=== PATIENT | male | born 1945 | race Caucasian/White ===

== ENCOUNTER 2016-07-27 17:29 | Emergency (ER) | payer MEDICARE ==
[~2016-07-27] VITALS: Ht 172.7 cm; Wt 99.8 kg
--- NOTE | 2016-07-27 17:36 | NUR ---
PT BIB RA S/P GLF WHILE CLEANING POOL FILTER C/O MID-LOW BACK PAIN. NO HEAD OR NECK PAIN. NO KO. RESP EVEN UNLABORED. NAD NOTED. PLACED IN ER BED 16.
[2016-07-27] MEDS ORDERED: HYDROCODONE/APAP 10/325MG 1 EA TABLET PO ONE (18:30)
[2016-07-27] MEDS ORDERED: HYDROCODONE/APAP 10/325MG 1 EA TABLET ONE (18:30)
[2016-07-27] MEDS ORDERED: IBUPROFEN 600 MG TABLET PO ONE ×2 (18:30)
--- NOTE | 2016-07-27 18:37 | NUR ---
PT TAKEN TO XRAY VIA [facility]
--- NOTE | 2016-07-27 20:56 | NUR ---
NAD NOTED. Patient ready for discharge to home in stable condition. Written and verbal after care instructions given. Patient verbalizes understanding of instruction. PT AWAITING DISPENSING OF WALKER FOR DISCHARGE HOME; LITIGATION PARALEGAL PAGED TO GET ONE FROM [facility].
[2016-07-27 21:25] VITALS: BP 140/76
--- NOTE | 2016-07-27 21:25 | NUR ---
CALLED [facility] FOR PT. DISPENSED WALKER. PT AMBULATED TO [facility] WITH STEADY GAIT WITH WALKER.
== END 2016-07-27 21:26 | disposition home or self-care (01) ==
LOC: ER 17:31
DX: S93.402A Sprain of unspecified ligament of left ankle, initial encounter (principal); S29.012A Strain of muscle and tendon of back wall of thorax, initial encounter; J06.9 Acute upper respiratory infection, unspecified; E03.9 Hypothyroidism, unspecified; Z98.1 Arthrodesis status; Z85.51 Personal history of malignant neoplasm of bladder; Z88.2 Allergy status to sulfonamides; W18.39XA Other fall on same level, initial encounter; Y93.H3 Activity, building and construction; Y92.89 Other specified places as the place of occurrence of the external cause; Y99.9 Unspecified external cause status
CPT/HCPCS: 71010; 72074; 73610; 99284; A4606; Z7610

== ENCOUNTER 2018-05-18 13:25 | Inpatient (IN) | payer MEDICARE ==
[~2018-05-18] VITALS: Ht 172.7 cm; Wt 103.9 kg
[~2018-05-18 13:25] MED LIST: PIPERACILLIN /TAZOBACTAM 3.375 G in IV D5W 100 ML IV SCH
--- NOTE | 2018-05-18 13:47 | NUR ---
PT CAME FROM [facility] AND WAS ADVISED TO GO TO ER FOR RLQ ABDOMINAL PAIN X YESTERDAY. ALERT AND ORIENTED X 4, VERBALLY RESPONSIVE AND ABLE TO MAKE NEEDS KNWON. ON ROOM AIR, BREATHING EVENLY AND UNLABORED. CONNECTED TO THE MONITOR, AND PULSE OX, TACHYCARDIC 103, KEPT COMFORTABLE, WILL CONTINUE TO MONITOR ACCORDINGLY.
[2018-05-18 13:59] LABS: BASOPHILS # (AUTO) 0.3 /CMM (0.0-0.2); BASOPHILS % (AUTO) 0.9 % (0.0-2.0); EOSINOPHILS % (AUTO) 0.1 % (0.0-6.0); HEMATOCRIT 40 % (39-51); HEMOGLOBIN 12.7 g/dL (13.5-17.5); LYMPHOCYTES # (AUTO) 0.8 /CMM (0.8-4.8); MEAN CORPUSCULAR HGB CONC 32 g/dl (31.0-36.0); MEAN CORPUSCULAR VOLUME 87 fL (80-96); MONOCYTES # (AUTO) 2.2 /CMM (0.1-1.30); MONOCYTES % (AUTO) 5.7 % (2.0-12.0); NEUTROPHILS # (AUTO) 35.6 /CMM (1.8-8.9); NEUTROPHILS % (AUTO) 91.3 % (43.0-81.0); PLATELET COUNT (AUTO) 203 /CMM (150-450); RED BLOOD CELL COUNT(AUTO) 4.56 MIL/uL (4.5-6.0)
[2018-05-18] MEDS ORDERED: IV NS 0.9% 1,000 ML BAG IV ONE ×2 (14:00→15:00)
[2018-05-18 14:02] LABS: WHITE BLOOD COUNT (AUTO) 38.9 K/uL (4.3-11.0)
[2018-05-18 14:07] LABS: CALCIUM, SERUM 8.5 mg/dL (8.5-10.1); CARBON DIOXIDE 16 mmol/L (21-32); CHLORIDE 109 mmol/L (98-107); CREATININE 3.8 mg/dL (0.6-1.3); GLUCOSE 120 mg/dL (74-106); POTASSIUM 4.6 mmol/L (3.5-5.1); SODIUM SERUM 136 mmol/L (136-145); UREA NITROGEN, BLOOD 67 mg/dL (7-18)
[2018-05-18 14:13] LABS: ALANINE AMINOTRANSFERASE 42 U/L (12-78); ALBUMIN 2.7 g/dL (3.4-5.0); ALKALINE PHOSPHATASE 83 U/L (46-116); ASPARTATE AMINOTRANSFERASE 25 U/L (15-37); BILIRUBIN,DIRECT 0.4 mg/dL (0.0-0.2); BILIRUBIN,TOTAL 1.1 mg/dL (0.2-1.0); LIPASE 647 U/L (73-393); TOTAL PROTEIN, SERUM 7.3 g/dL (6.4-8.2)
[2018-05-18 15:00] LABS: BAND % (MANUAL) 6 % (0.0-5.0); LYMPHOCYTES % (MANUAL) 6 % (16-48); MONOCYTES % (MANUAL) 8 % (0-11.0); NEUTROPHILS % (MANUAL) 80 (42-76)
[2018-05-18] MEDS ORDERED: VANCOMYCIN 1 GM in IV D5W 250 ML IV ONE (15:00)
[2018-05-18] MEDS ORDERED: PIPERACILLIN /TAZOBACTAM 3.375 G in IV D5W 50 ML IV ONE (15:00)
[2018-05-18 15:14] LABS: APPEARANCE,URINE Turbid (CLEAR); BILIRUBIN,URINE SMALL (NEGATIVE); BLOOD, URINE Large Ery/uL (NEGATIVE); KETONES,URINE Negative (NEGATIVE); LEUKOCYTE ESTERASE ,URINE Small (NEGATIVE); NITRITE, URINE Negative (NEGATIVE); PROTEIN,URINE >=300 mg/dl (NEGATIVE); UGLUCOSE Negative (NEGATIVE); UROBILINOGEN,URINE 0.2 EU/dL (0.2)
[2018-05-18 15:15] LABS: COLOR,URINE Dark Yellow (YELLOW)
--- NOTE | 2018-05-18 15:20 | NUR ---
PT GOING TO RADIOLOGY FOR CT SCAN.
[2018-05-18 15:21] LABS: BACTERIA,URINE Moderate /HPF (None Seen); SQUAMOUS EPITHELIAL CELL,UR Few /HPF (None Seen); WBC,URINE 80-100 /HPF (0-3)
--- NOTE | 2018-05-18 15:30 | NUR ---
pt came back from ct
[2018-05-18] MEDS ORDERED: INDO50CA14 PO (16:12)
[2018-05-18] MEDS ORDERED: LEVO125T8 PO (16:12)
[2018-05-18] MEDS ORDERED: LATA7.5D EACHEYE (16:12)
[2018-05-18] MEDS ORDERED: HYDR50TA3 PO (16:12)
[2018-05-18] MEDS ORDERED: LISI40TA4 PO (16:12)
--- NOTE | 2018-05-18 17:50 | NUR ---
Pt is assigned to [facility] rm# [id number], DX: severe sepsis, and accepting: Yuniel Durham DNP
--- NOTE | 2018-05-18 18:17 | NUR ---
CALLED TAMARA AND PRATIK TO chris and report given for efrain.
--- NOTE | 2018-05-18 19:17 | NUR ---
TRANSFERRED PT VIA GURNEY ACCOMPANIED BY RN AND EMT VIA ACLS PROTOCOL IN NO APPARENT DISTRESS NOTED. [place] ON SITE AND RECEIVED THE PATEINT FOR FORTUNATO.
[2018-05-18] MEDS ORDERED: HYDROCODONE/APAP 5/325MG 1 EACH TABLET PO PRN (19:30)
[2018-05-18] MEDS ORDERED: Z GUARD REMEDY 2 OZ OINT TP PRN (19:30)
[2018-05-18] MEDS ORDERED: ONDANSETRON HCL/PF 4 MG/2 ML VIAL IVP PRN (19:30)
[2018-05-18] MEDS ORDERED: ZOLPIDEM TARTRATE 5 MG TABLET PO PRN (19:30)
[2018-05-18] MEDS ORDERED: HYDROMORPHONE INJ 2 MG/ML DISP.SYRIN IV PRN (19:30)
[2018-05-18] MEDS ORDERED: ACETAMINOPHEN 325 MG TABLET PO PRN (19:30)
[2018-05-18] MEDS ORDERED: FEE PK DOSING 1 MIN EA MC ONE (19:31)
[2018-05-18 20:00] VITALS: BP 107/41
[2018-05-18] MEDS ORDERED: CEFTRIAXONE 1 G VIAL ONE (21:20)
[2018-05-18] MEDS: CEFTRIAXONE 1 G in IV D5W 50 ML IV SCH (21:40)
[2018-05-18] MEDS: TAMSULOSIN 0.4 MG CAP.SR.24H PO SCH ×2 (21:40→21:48)
[2018-05-19] VITALS (7 sets, daily range): BP systolic 100–154; BP diastolic 55–116
[2018-05-19] MEDS: IV NS 0.9% 1,000 ML IV PRN ×2 (01:19→15:36)
[2018-05-19] MEDS ORDERED: PIPERACILLIN /TAZOBACTAM 3.375 G in IV D5W 100 ML IV SCH ×4 (04:00)
[2018-05-19 06:18] LABS: BASOPHILS % (AUTO) 0.1 % (0.0-2.0); EOSINOPHILS % (AUTO) 0.1 % (0.0-6.0); HEMATOCRIT 38 % (39-51); HEMOGLOBIN 12.1 g/dL (13.5-17.5); LYMPHOCYTES # (AUTO) 0.7 /CMM (0.8-4.8); LYMPHOCYTES % (AUTO) 2.1 % (20.0-44.0); MEAN CORPUSCULAR HGB CONC 32 g/dl (31.0-36.0); MEAN CORPUSCULAR VOLUME 87 fL (80-96); MONOCYTES # (AUTO) 1.9 /CMM (0.1-1.30); MONOCYTES % (AUTO) 6.2 % (2.0-12.0); NEUTROPHILS # (AUTO) 28.6 /CMM (1.8-8.9); NEUTROPHILS % (AUTO) 91.5 % (43.0-81.0); PLATELET COUNT (AUTO) 175 /CMM (150-450); RED BLOOD CELL COUNT(AUTO) 4.34 MIL/uL (4.5-6.0)
[2018-05-19 06:36] LABS: WHITE BLOOD COUNT (AUTO) 31.3 K/uL (4.3-11.0)
[2018-05-19 06:38] LABS: CALCIUM, SERUM 7.6 mg/dL (8.5-10.1); CARBON DIOXIDE 13 mmol/L (21-32); CHLORIDE 112 mmol/L (98-107); CHOLESTEROL 82 mg/dL (<200); CREATININE 3.6 mg/dL (0.6-1.3); GLUCOSE 91 mg/dL (74-106); HDL CHOLESTEROL 18 mg/dL (40-60); LDL 45 mg/dL (0-99); POTASSIUM 5.2 mmol/L (3.5-5.1); SODIUM SERUM 141 mmol/L (136-145); TRIGLYCERIDES 93 mg/dL (30-150); UREA NITROGEN, BLOOD 63 mg/dL (7-18)
[2018-05-19 06:40] LABS: MAGNESIUM 1.1 mg/dL (1.8-2.4)
[2018-05-19 06:41] LABS: THYROID STIMULATING HORMONE < 0.007 uIU/mL (0.358-3.74)
[2018-05-19 07:23] LABS: BAND % (MANUAL) 14 % (0.0-5.0); LYMPHOCYTES % (MANUAL) 1 % (16-48); MONOCYTES % (MANUAL) 2 % (0-11.0); NEUTROPHILS % (MANUAL) 83 (42-76)
--- NOTE | 2018-05-19 07:56 | NUR ---
TAMARA RN NOTE RECEIVED PATIENT IN BED,ALL NEEDS ATTENDED, ON TELE MONITOR ST 123 , ALERT ORIENTED X3, RT FA AND RT AC HL INTACT , ON IVF ORDERED , BED IN LOWEST AND LOCKED POSITION , PLAN OF CARE DISCUSSED WITH PATIENT ,NO C\O PAIN OR DISCOMFORT BUT NOTED SLIGHT SOB , PLACED ON 2L NC FOR NOW, WILL MONITOR CLOSELY,BED IN LOWEST AND LOCKED POSITION , CALL LIGHT WITHIN REACH, MAG 1.[address] ROWE SUPERVISOR CD AREA, STATED THAT WILL CHECK PATIENT SOON
[2018-05-19] MEDS: PANTOPRAZOLE 40 MG VIAL IV SCH (08:11)
[2018-05-19] MEDS: LEVOTHYROXINE SODIUM 125 MCG TABLET PO SCH (08:11)
--- NOTE | 2018-05-19 09:30 | NUR ---
TAMARA RN NOTE SPOKE WITH PAMELA NOTIFIED THAT MAG 1.1 AND K 5.2 BP 141/116 STATED I WILL SEE PATIENT SOON, NO NEW ORDER GIVEN AT THIS TIME 2
--- NOTE | 2018-05-19 11:59 | NUR ---
TAMARA RN NOTE DR GORDON AT BEDSIDE AWARE THAR HR 123-148 BP 141/116 ALSO AWARE THAT MAG1.1 STATED WILL ORDER MAG TO INFUSE
[2018-05-19] MEDS: Magnesium 1GM/D5W 100ML PREMIX 100 ML IV SCH ×4 (12:07→15:28)
[2018-05-19 12:29] LABS: APPEARANCE,URINE CLEAR (CLEAR); BILIRUBIN,URINE NEGATIVE (NEGATIVE); BLOOD, URINE 3+ Ery/uL (NEGATIVE); COLOR,URINE YELLOW (YELLOW); KETONES,URINE NEGATIVE (NEGATIVE); LEUKOCYTE ESTERASE ,URINE 1+ (NEGATIVE); NITRITE, URINE NEGATIVE (NEGATIVE); PROTEIN,URINE 2+ mg/dl (NEGATIVE); UGLUCOSE NEGATIVE (NEGATIVE); UROBILINOGEN,URINE 0.2 EU/dL (0.2)
--- NOTE | 2018-05-19 12:30 | NUR ---
TAMARA RN NOTE SPOKE WITH LUZ ELENA INFECTION CONTROL NURSE NOTIFIED THAT PATIENT HAS LOOSE STOOLL STATED OK TO COLLECT STOOL FOR R\O C DIF ,NO NEED TO FILL OUT FORM PER POLICY PROTOCOL
[2018-05-19 12:34] LABS: CREATININE, URINE 66.3 MG/DL (30.0-125.0); URINE TOTAL PROTEIN 164.4 mg/dL (0-11.9)
[2018-05-19 12:36] LABS: BACTERIA,URINE Few /HPF (None Seen); SQUAMOUS EPITHELIAL CELL,UR Few /HPF (None Seen)
[2018-05-19 12:37] LABS: WBC,URINE 21-50 /HPF (0-3)
--- NOTE | 2018-05-19 12:46 | NUR ---
eris rn note ua collected as ordered ,keep clean dry will f\u
[2018-05-19 13:01] LABS: EOSINOPHIL,URINE None Seen
--- NOTE | 2018-05-19 14:34 | NUR ---
eris rn note spoke to MD Braun urologist regarding consent for Cystoscopy w/ stent insertion. stated he would see patient by end of day today and will order necessary interventions once he completed discussion w/ patient. Patient informed bedside by RN of the conversation.
--- NOTE | 2018-05-19 16:00 | NUR ---
TAMARA RN NOT UNABLE TO COLLECT STOOL, ITS ABSORBED ON LINEN
--- NOTE | 2018-05-19 16:32 | NUR ---
Met with patient, he is alert and oriented. States he lives alone locally in a single level home. He has a walker if needed . States he is ambulatory and independent with adl's and still driving. His car is parked at the handicapped parking spot at the parking structure. He plan to return home with his car once discharge . Addendum: 05/19/18 at 1632 by MICHAEL AQUINO RN Amended: Links added.
[2018-05-19] MEDS: LATANOPROST EYE DROP 0.005% 2.5 ML BOTTLE EACHEYE SCH (17:51)
--- NOTE | 2018-05-19 17:57 | NUR ---
TAMARA RN NOTES SPOKE W/ PT AND DISCUSSED PROCEDURE ORDERED. PT CONTINUES TO REFUSE TO CONSENT TO TX UNTIL HE SPEAKS TO MD. PT EDUCATED AND ENCOURAGED BUT HE STILL WANTS TO WAIT FOR MD.
--- NOTE | 2018-05-19 19:15 | NUR ---
TAMARA RN NOTE ENDORSED TO NEXT SHIFT RN TO COLLECT STOOL IF STOOL PRESENTS WATERY
--- NOTE | 2018-05-19 20:00 | NUR ---
RN TAMARA INITIAL NOTE RECEIVED PATIENT IN BED,ALL NEEDS ATTENDED, ON TELE MONITOR ST 125, ALERT ORIENTED X3, RT FA AND RT AC HL INTACT , ON IVF ORDERED , BED IN LOWEST AND LOCKED POSITION , PLAN OF CARE DISCUSSED WITH PATIENT ,NO C\O PAIN OR DISCOMFORT BUT NOTED SLIGHT SOB , PLACED ON 2L NC FOR NOW, WILL MONITOR CLOSELY,BED IN LOWEST AND LOCKED POSITION , CALL LIGHT WITHIN REACH, SEEN BY DR ROWE ENERGY SALES CONSULTANT, FO IN AM, CONSENT OBTAINED BY MD AT BED SIDE.
[2018-05-19] MEDS: CEFTRIAXONE 1 G in IV D5W 50 ML IV SCH (22:27)
[2018-05-19] MEDS: TAMSULOSIN 0.4 MG CAP.SR.24H PO SCH (22:27)
[2018-05-20] VITALS (7 sets, daily range): BP systolic 97–139; BP diastolic 55–71
[2018-05-20] MEDS: IV NS 0.9% 1,000 ML IV PRN ×3 (01:46→23:42)
[2018-05-20] MEDS ORDERED: VANCOMYCIN 1 GM in IV D5W 250 ML IV SCH (03:00)
--- NOTE | 2018-05-20 06:45 | NUR ---
RN CLOSING TAMARA NOTE PT SCHEDULED FOR AM SX FOR CYSTOSCOPY RT JJ STENT PLACEMENT AND FLUOROSCOPY, CONSENT AND CHECK LIST COMPLETED, FILED IN PT CHART. WILL ENDORSE TO AM RN TO F/U WITH PROCEDURE.
[2018-05-20] MEDS ORDERED: IOHEXOL 240MG/ML 0 ML IV ONE (07:04)
[2018-05-20] MEDS ORDERED: LIDOCAINE 2% JEL 5 ML TUBE ONE (07:05)
--- NOTE | 2018-05-20 07:10 | NUR ---
TAMARA RN OPENING NOTES RECEIVED REPORT FROM THE SHEEP FARM WORKER RN.PT WENT TO SURGERY AT THIS TIME.
[2018-05-20 07:21] LABS: BASOPHILS % (AUTO) 0.2 % (0.0-2.0); EOSINOPHILS % (AUTO) 0.2 % (0.0-6.0); HEMATOCRIT 33 % (39-51); HEMOGLOBIN 10.9 g/dL (13.5-17.5); LYMPHOCYTES # (AUTO) 0.5 /CMM (0.8-4.8); MEAN CORPUSCULAR HGB CONC 33 g/dl (31.0-36.0); MEAN CORPUSCULAR VOLUME 86 fL (80-96); MONOCYTES # (AUTO) 0.9 /CMM (0.1-1.30); NEUTROPHILS # (AUTO) 16.7 /CMM (1.8-8.9); NEUTROPHILS % (AUTO) 91.6 % (43.0-81.0); PLATELET COUNT (AUTO) 134 /CMM (150-450); RED BLOOD CELL COUNT(AUTO) 3.87 MIL/uL (4.5-6.0); WHITE BLOOD COUNT (AUTO) 18.3 K/uL (4.3-11.0)
[2018-05-20] MEDS ORDERED: ANESTHESIA TRAY IN PYXIS 1 EA TRAY MC ONE (07:23)
[2018-05-20 07:34] LABS: CREATINE KINASE, TOTAL 25 U/L (39-308)
[2018-05-20 07:43] LABS: ALANINE AMINOTRANSFERASE 25 U/L (12-78); ALBUMIN 1.9 g/dL (3.4-5.0); ALKALINE PHOSPHATASE 156 U/L (46-116); ASPARTATE AMINOTRANSFERASE 17 U/L (15-37); BILIRUBIN,TOTAL 0.5 mg/dL (0.2-1.0); CALCIUM, SERUM 8.2 mg/dL (8.5-10.1); CARBON DIOXIDE 13 mmol/L (21-32); CHLORIDE 113 mmol/L (98-107); CREATININE 3.4 mg/dL (0.6-1.3); GLUCOSE 87 mg/dL (74-106); MAGNESIUM 2.1 mg/dL (1.8-2.4); PHOSPHORUS 3.7 mg/dL (2.5-4.9); POTASSIUM 4.4 mmol/L (3.5-5.1); SODIUM SERUM 140 mmol/L (136-145); TOTAL PROTEIN, SERUM 6.1 g/dL (6.4-8.2); UREA NITROGEN, BLOOD 57 mg/dL (7-18)
--- NOTE | 2018-05-20 09:05 | NUR ---
TAMARA RN NOTES PT CAME BACK FROM SURGERY,RECEIVED FROM THE SURGICAL STAFF.ALERT/ORIENTED X4.ON TELE HR IS [address]ON NC 2L O2 CONTINUOUSLY.NO SOB AND ACUTE DISTRESS NOTED. DENIES PAIN,NAUSEA AND VOMITING,BLEEDING. IV LINE IS ON RIGHT FA G18,RIGHT AC G20,LEFT HAND G18,SITE IS CLEAN,DRY AND INTACT.NO INFILTRATION NOTED.SAFETY IS MAINTAINED AT ALL TIMES.BED IS IN LOW POSITION AND LOCKED.CALL LIGHT IS WITHIN REACH.WILL CONTINUE TO MONITOR THE PT CLOSELY.
[2018-05-20] MEDS: PANTOPRAZOLE 40 MG VIAL IV SCH (09:34)
[2018-05-20] MEDS: LEVOTHYROXINE SODIUM 125 MCG TABLET PO SCH (09:34)
[2018-05-20] MEDS ORDERED: MEROPENEM 500 MG in IV NS 0.9% 50 ML IV SCH (13:00)
[2018-05-20] MEDS: MEROPENEM 1 G in IV NS 0.9% 100 ML IV SCH (13:15)
[2018-05-20] MEDS: LATANOPROST EYE DROP 0.005% 2.5 ML BOTTLE EACHEYE SCH (18:31)
--- NOTE | 2018-05-20 19:30 | NUR ---
TAMARA RN CLOSING NOTES PT IS LYING ON BED WITH 2L NC O2 CONTINUOUSLY.ALERT/ORIENTED X4.S/P STENT PLACEMENT .NO HEMATURIA NOTED.RESPIRATION IS EVEN AND NONLABORED.ENDORSED TO SALES MERCHANDISING SPECIALIST RN FOR FORTUNATO.
--- NOTE | 2018-05-20 20:00 | NUR ---
RN TAMARA INITIAL NOTE RECEIVED PATIENT IN BED,ALL NEEDS ATTENDED, ON TELE MONITOR ST 105, ALERT ORIENTED X3, RT FA AND RT AC HL INTACT , ON IVF ORDERED , BED IN LOWEST AND LOCKED POSITION , PLAN OF CARE DISCUSSED WITH PATIENT ,NO C\O PAIN OR DISCOMFORT BUT NOTED SLIGHT SOB , PLACED ON 2L NC FOR NOW, WILL MONITOR CLOSELY,BED IN LOWEST AND LOCKED POSITION , CALL LIGHT WITHIN REACH, S/P SX, NO COMPLICATION NOTED.
[2018-05-20] MEDS: TAMSULOSIN 0.4 MG CAP.SR.24H PO SCH (21:39)
[2018-05-21 00:06] VITALS: BP 128/68
[2018-05-21] MEDS: MEROPENEM 1 G in IV NS 0.9% 100 ML IV SCH ×2 (01:13→12:05)
[2018-05-21 04:35] VITALS: BP 143/68
--- NOTE | 2018-05-21 06:16 | NUR ---
RN TAMARA CLOSING NOTE ENDORSED PATIENT IN BED,ALL NEEDS ATTENDED, ON TELE MONITOR ST 105, ALERT ORIENTED X3, RT FA AND RT AC HL INTACT , ON IVF ORDERED , BED IN LOWEST AND LOCKED POSITION , PLAN OF CARE DISCUSSED WITH PATIENT ,NO C\O PAIN OR DISCOMFORT BUT NOTED SLIGHT SOB , PLACED ON 2L NC FOR NOW, WILL MONITOR CLOSELY,BED IN LOWEST AND LOCKED POSITION , CALL LIGHT WITHIN REACH, S/P SX, NO COMPLICATION NOTED.
[2018-05-21 07:24] LABS: BASOPHILS % (AUTO) 0.1 % (0.0-2.0); EOSINOPHILS % (AUTO) 0.7 % (0.0-6.0); HEMATOCRIT 32 % (39-51); HEMOGLOBIN 10.4 g/dL (13.5-17.5); LYMPHOCYTES # (AUTO) 0.7 /CMM (0.8-4.8); LYMPHOCYTES % (AUTO) 4.4 % (20.0-44.0); MEAN CORPUSCULAR HGB CONC 33 g/dl (31.0-36.0); MEAN CORPUSCULAR VOLUME 86 fL (80-96); MONOCYTES % (AUTO) 6.5 % (2.0-12.0); NEUTROPHILS % (AUTO) 88.3 % (43.0-81.0); PLATELET COUNT (AUTO) 121 /CMM (150-450); RED BLOOD CELL COUNT(AUTO) 3.71 MIL/uL (4.5-6.0); WHITE BLOOD COUNT (AUTO) 15.8 K/uL (4.3-11.0)
--- NOTE | 2018-05-21 07:31 | NUR ---
TAMARA RN INITIAL NOTES: RECEIVED PT FROM NIGHTSHIFT RN IN STABLE CONDITION. PT IS A/O X4. NO SOB OR ACUTE SIGNS OF DISTRESS NOTED. BREATHING IS EVEN AND UNLABORED. PT ON 2L VIA NC AND SATING WELL. HE DENIES ANY PAIN AT THIS TIME. NO DIFFICULTIES WITH URINATION REPORTED BY NIGHTSHIFT RN OF PT. VSS. MULTIPLE IVS NOTED. ONE TO PT'S LEFT HAND ANOTHER TO HIS RIGHT AC AND RIGHT FA INFUSING NS @ 125ML/HR. ALL IVS NOTED TO BE PATENT AND INTACT. NO REDRESSOR SIGNS OF INFILTRATION NOTED. PT TOLERATING NS INFUSION WELL. HE IS CURRENTLY SR ON THE TELE MONITOR WITH A HR OF 98. BED IN LOW LOCKED POSITION, SIDE RAILS UP X2, CALL LIGHT WITHIN REACH. WILL CONTINUE TO MONITOR
[2018-05-21 07:43] LABS: CALCIUM, SERUM 8.4 mg/dL (8.5-10.1); CARBON DIOXIDE 14 mmol/L (21-32); CHLORIDE 115 mmol/L (98-107); GLUCOSE 93 mg/dL (74-106); POTASSIUM 4.5 mmol/L (3.5-5.1); SODIUM SERUM 144 mmol/L (136-145); UREA NITROGEN, BLOOD 55 mg/dL (7-18)
[2018-05-21 08:00] VITALS: BP 139/72
--- NOTE | 2018-05-21 08:27 | NUR ---
TAMARA RN NOTES: DR. INGRAM UPDATE DR. INGRAM CALLED IN REGARDS TO PT'S CONDITION. UPDATED ON CONDITION AND CURRENT VITALS. PER ME "PT IS CLEARED TO GO HOME FROM MY STANDPOINT WITH HIS STENT AND KNOWS TO FOLLOW UP WITH HIS UROLOGIST"
[2018-05-21] MEDS: PANTOPRAZOLE 40 MG VIAL IV SCH (08:32)
[2018-05-21] MEDS: LEVOTHYROXINE SODIUM 125 MCG TABLET PO SCH (08:32)
[2018-05-21] MEDS: IV NS 0.9% 1,000 ML IV PRN (10:46)
[2018-05-21] MEDS ORDERED: MERO1VIA3 IV (11:16)
[2018-05-21 12:00] VITALS: BP 127/59
[2018-05-21 14:15] LABS: PTH, INTACT 84 pg/mL (15-65)
[2018-05-21 16:00] VITALS: BP 134/67
--- NOTE | 2018-05-21 16:54 | NUR ---
TAMARA MACHINE SETTER AUTOMATIC NOTES PT WAS DISCHARGED FROM FACILITY IN STABLE CONDITION. ALL NEEDS WERE MET DURING SHIFT AND ORDERS CARRIED OUT ACCORDINGLY. ALL DUE MEDS GIVEN. PRN CARE RENDERED. PT DENIED ANY PAIN PRIOR TO D/C. VSS. EXITCARE MATERIALS REVIEWED WITH PT. PT SIGNED ALL D/C PAPERWORK. ALL BELONGINGS ACCOUNTED FOR PRIOR TO D/C. COPIES MADE AND PLACED IN PT'S CHART. REPORT CALLED AND GIVEN TO PILO THE CHARGE NURSE AT [facility]. CHARGE MADE AWARE OF PT'S ISOLATION AND THAT PT IS TO CONTINUE ABX FOR THE NEXT 10 DAYS ORDERED. CHARGE ALSO NOTIFIED OF PT'S IV (S) AND ASKED THAT THEY ALL BE LEFT IN. ALL IVS WERE PATENT AND INTACT UPON TRANSFER. NO REDNESS OR SIGNS OF INFILTRATION NOTED TO EACH. HE WAS SAFELY TRANSFERRED FROM [facility] TO [facility] AND LEFT VIA AMBULANCE TRANSPORT
[2018-05-25 08:08] LABS: *SPE A/G RATIO 0.6 (0.7-1.7); *SPE ALPHA-1-GLOBULIN 0.5 g/dL (0.0-0.4); *SPE BETA GLOBULIN 0.9 g/dL (0.7-1.3); *SPE GLOBULIN, TOTAL 3.3 g/dL (2.2-3.9); *SPE M-SPIKE Not Observed g/dL (Not Observed)
[2018-06-21] MEDS ORDERED: HYDR-3972 PO (14:20)
[2018-06-21] MEDS ORDERED: LEVO500T90 PO (14:20)
[2018-06-21] MEDS ORDERED: PRED20TA PO ×2 (14:20→15:13)
[2018-06-21] MEDS ORDERED: METR500T PO (14:20)
[2018-06-21] MEDS ORDERED: NYST15CR2 TP (14:20)
== END 2018-05-21 16:27 | DRG 853 ==
LOC: ER 13:27 → TELE1 18:03 → TELE-TD 21:56
PROVIDERS: ADMIT Nurse Practitioner Acute Care; ATTEND Family Medicine
PROC: 0T768DZ Dilation of Right Ureter with Intraluminal Device, Via Natural or Artificial Opening Endoscopic (ICD-10-PCS; principal; 2018-05-20)
DX: A41.9 Sepsis, unspecified organism (principal); N17.0 Acute kidney failure with tubular necrosis; N13.6 Pyonephrosis; R65.20 Severe sepsis without septic shock; E03.9 Hypothyroidism, unspecified; E87.5 Hyperkalemia; I10 Essential (primary) hypertension; K43.9 Ventral hernia without obstruction or gangrene; K76.0 Fatty (change of) liver, not elsewhere classified; Z88.2 Allergy status to sulfonamides; Z90.49 Acquired absence of other specified parts of digestive tract; E66.9 Obesity, unspecified; Z68.34 Body mass index [BMI] 34.0-34.9, adult; M10.9 Gout, unspecified; B96.20 Unspecified Escherichia coli [E. coli] as the cause of diseases classified elsewhere; Z16.12 Extended spectrum beta lactamase (ESBL) resistance; Z85.51 Personal history of malignant neoplasm of bladder; Z87.442 Personal history of urinary calculi; N28.1 Cyst of kidney, acquired; T39.395A Adverse effect of other nonsteroidal anti-inflammatory drugs [NSAID], initial encounter; T46.4X5A Adverse effect of angiotensin-converting-enzyme inhibitors, initial encounter; T50.2X5A Adverse effect of carbonic-anhydrase inhibitors, benzothiadiazides and other diuretics, initial encounter; Y92.009 Unspecified place in unspecified non-institutional (private) residence as the place of occurrence of the external cause
CPT/HCPCS: 36415; 71045-TC; 74018; 80048-TC; 80053-TC; 80061-TC; 80076-TC; 80202-TC; 81000-TC; 82550-TC; 82570-TC; 83605-TC; 83690-TC; 83735-TC; 83970; 84100-TC; 84155; 84155-TC; 84165; 84300-TC; 84443-TC; 84484-TC; 85025-TC; 87040-TC; 87081-TC; 87086-TC; 87186-TC; A4216; A4217; C1769; C2617; C9113; G0378; J0696; J2185; J2543; J2704; J3370; J3475; J7030; J7060; Q9966

== ENCOUNTER 2018-05-29 12:55 | Emergency (ER) | payer MEDICARE ==
[~2018-05-29] VITALS: Ht 182.9 cm; Wt 98.0 kg
[~2018-05-29 12:55] MED LIST changes: +HYDR50TA3 PO; +LATA7.5D EACHEYE; +LEVO125T8 PO; +LISI40TA4 PO; +MERO1VIA3 IV; -PIPERACILLIN /TAZOBACTAM 3.375 G in IV D5W 100 ML IV SCH
[2018-05-29] MEDS ORDERED: MERO500V3 IV (13:15)
[2018-05-29] MEDS ORDERED: TIMO5DRO39 EACHEYE (13:15)
[2018-05-29] MEDS ORDERED: MULT-447 PO (13:15)
[2018-05-29] MEDS ORDERED: TEMA7.5C PO (13:15)
--- NOTE | 2018-05-29 13:15 | NUR ---
BIB PRIVATE AMB FROM [facility]. SENT BY PMD FOR ABLABS K+ 6.1, BUN 77, CREA 2.5. ALERT AND ORIENTED X 4, VERBALLY RESPONSIVE. ON ROOM AIR, BREATHING EVENLY AND UNLABORED. DENIES ANY PAIN AT THIS TIME. CONNECTED TO THE MONITOR AND PULSE OX. KEPT COMFORTABLE, WILL CONTINUE TO MONITOR ACCORDINGLY.
[2018-05-29 13:23] LABS: BASOPHILS # (AUTO) 0.1 /CMM (0.0-0.2); BASOPHILS % (AUTO) 0.5 % (0.0-2.0); EOSINOPHILS % (AUTO) 3.3 % (0.0-6.0); HEMATOCRIT 39 % (39-51); HEMOGLOBIN 12.6 g/dL (13.5-17.5); LYMPHOCYTES # (AUTO) 1.4 /CMM (0.8-4.8); LYMPHOCYTES % (AUTO) 10.5 % (20.0-44.0); MEAN CORPUSCULAR HGB CONC 33 g/dl (31.0-36.0); MEAN CORPUSCULAR VOLUME 87 fL (80-96); MONOCYTES # (AUTO) 1.2 /CMM (0.1-1.30); MONOCYTES % (AUTO) 9.3 % (2.0-12.0); NEUTROPHILS # (AUTO) 10.2 /CMM (1.8-8.9); NEUTROPHILS % (AUTO) 76.4 % (43.0-81.0); PLATELET COUNT (AUTO) 273 /CMM (150-450); RED BLOOD CELL COUNT(AUTO) 4.45 MIL/uL (4.5-6.0); WHITE BLOOD COUNT (AUTO) 13.3 K/uL (4.3-11.0)
[2018-05-29] MEDS ORDERED: IV NS 0.9% 1,000 ML BAG IV ONE (13:30)
[2018-05-29 13:33] LABS: CALCIUM, SERUM 8.7 mg/dL (8.5-10.1); CARBON DIOXIDE 18 mmol/L (21-32); CHLORIDE 112 mmol/L (98-107); CREATININE 2.6 mg/dL (0.6-1.3); GLUCOSE 118 mg/dL (74-106); POTASSIUM 5.2 mmol/L (3.5-5.1); SODIUM SERUM 141 mmol/L (136-145); UREA NITROGEN, BLOOD 78 mg/dL (7-18)
[2018-05-29 13:39] LABS: ALANINE AMINOTRANSFERASE 40 U/L (12-78); ALBUMIN 2.3 g/dL (3.4-5.0); ALKALINE PHOSPHATASE 139 U/L (46-116); ASPARTATE AMINOTRANSFERASE 35 U/L (15-37); BILIRUBIN,DIRECT 0.1 mg/dL (0.0-0.2); BILIRUBIN,TOTAL 0.4 mg/dL (0.2-1.0); TOTAL PROTEIN, SERUM 7.8 g/dL (6.4-8.2)
--- NOTE | 2018-05-29 13:56 | NUR ---
CALLED [facility] FOR BLS TRANSPORT. ETA 30-45 MINUTES. TRIP#[id number]
[2018-05-29 13:58] LABS: APPEARANCE,URINE SL CLOUDY (CLEAR); BILIRUBIN,URINE NEGATIVE (NEGATIVE); BLOOD, URINE 3+ Ery/uL (NEGATIVE); COLOR,URINE DARK YELLO (YELLOW); KETONES,URINE NEGATIVE (NEGATIVE); LEUKOCYTE ESTERASE ,URINE TRACE (NEGATIVE); NITRITE, URINE NEGATIVE (NEGATIVE); PROTEIN,URINE 2+ mg/dl (NEGATIVE); UGLUCOSE NEGATIVE (NEGATIVE); UROBILINOGEN,URINE 0.2 EU/dL (0.2)
[2018-05-29 14:17] LABS: BACTERIA,URINE 1+ /HPF (None Seen); RBC,URINE TOO NUMEROUS TO COUN /HPF (0-2); SQUAMOUS EPITHELIAL CELL,UR 0-2 /HPF (None Seen)
--- NOTE | 2018-05-29 14:32 | NUR ---
CALLED [facility] SPOKE TO ELISABETH ROBLERO AND REPORT GIVEN FOR FORTUNATO.
[2018-05-29 15:43] VITALS: BP 121/71
--- NOTE | 2018-05-29 15:44 | NUR ---
Patient discharged to [facility] in stable condition. Written and verbal after care instructions given. Patient verbalizes understanding of instruction. IV removed. Catheter intact and site benign. Pressure and 4x4 applied to site. No bleeding noted.
[2018-06-21] MEDS ORDERED: PRED20TA PO ×2 (14:20→15:13)
[2018-06-21] MEDS ORDERED: HYDR-3972 PO (14:20)
[2018-06-21] MEDS ORDERED: LEVO500T90 PO (14:20)
[2018-06-21] MEDS ORDERED: METR500T PO (14:20)
[2018-06-21] MEDS ORDERED: NYST15CR2 TP (14:20)
== END 2018-05-29 15:44 ==
LOC: ER 12:59
DX: N28.9 Disorder of kidney and ureter, unspecified (principal); E03.8 Other specified hypothyroidism; Z85.51 Personal history of malignant neoplasm of bladder; Z90.49 Acquired absence of other specified parts of digestive tract; Z98.890 Other specified postprocedural states; Z88.2 Allergy status to sulfonamides; Z60.2 Problems related to living alone
CPT/HCPCS: 36415; 80048-TC; 80076-TC; 81000-TC; 85025-TC; A4649; J7030

== ENCOUNTER 2018-06-13 21:24 | Inpatient (IN) | payer MEDICARE ==
[~2018-06-13] VITALS: Ht 172.7 cm; Wt 95.3 kg
[~2018-06-13 21:24] MED LIST changes: -LATA7.5D EACHEYE; -MERO1VIA3 IV; +MERO500V3 IV; +MULT-447 PO; +TEMA7.5C PO; +TIMO5DRO39 EACHEYE
--- NOTE | 2018-06-13 22:05 | NUR ---
BIBPA FROM SNF FOR ABNORMAL LABS; NOTED PT TO BE HYPOTENSIVE; PT AAOX4, PT ON MONITOR, VSS, NAD NOTED, PENDING ER PROVIDER EVAL
[2018-06-13] MEDS ORDERED: IV NS 0.9% 1,000 ML BAG IV ONE (22:30)
[2018-06-13 22:33] LABS: BASOPHILS # (AUTO) 0.1 /CMM (0.0-0.2); BASOPHILS % (AUTO) 0.5 % (0.0-2.0); HEMATOCRIT 37 % (39-51); HEMOGLOBIN 11.8 g/dL (13.5-17.5); LYMPHOCYTES # (AUTO) 1.8 /CMM (0.8-4.8); LYMPHOCYTES % (AUTO) 11.7 % (20.0-44.0); MEAN CORPUSCULAR HGB CONC 32 g/dl (31.0-36.0); MEAN CORPUSCULAR VOLUME 86 fL (80-96); MONOCYTES # (AUTO) 2.3 /CMM (0.1-1.30); MONOCYTES % (AUTO) 15.1 % (2.0-12.0); NEUTROPHILS # (AUTO) 10.5 /CMM (1.8-8.9); NEUTROPHILS % (AUTO) 68.7 % (43.0-81.0); PLATELET COUNT (AUTO) 259 /CMM (150-450); RED BLOOD CELL COUNT(AUTO) 4.24 MIL/uL (4.5-6.0); WHITE BLOOD COUNT (AUTO) 15.3 K/uL (4.3-11.0)
[2018-06-13 22:45] LABS: CALCIUM, SERUM 8.1 mg/dL (8.5-10.1); CARBON DIOXIDE 16 mmol/L (21-32); CHLORIDE 105 mmol/L (98-107); GLUCOSE 105 mg/dL (74-106); POTASSIUM 3.9 mmol/L (3.5-5.1); SODIUM SERUM 137 mmol/L (136-145); UREA NITROGEN, BLOOD 55 mg/dL (7-18)
--- NOTE | 2018-06-13 22:48 | NUR ---
INSERTED F/C, WITH URINE OUTPUT OF 20ML, WILL CHECK AGAIN FOR SPECIMEN COLLECTION IN 15MINS; DR MENDEZ MADE AWARE OF OUTPUT.
[2018-06-13] MEDS ORDERED: LIDOCAINE 2% JEL UROJET 10 ML MM ONE ×2 (22:50→23:00)
[2018-06-13 23:04] LABS: ALANINE AMINOTRANSFERASE 17 U/L (12-78); ALBUMIN 2.2 g/dL (3.4-5.0); ALKALINE PHOSPHATASE 79 U/L (46-116); ASPARTATE AMINOTRANSFERASE 17 U/L (15-37); B-TYPE NATRIURETIC PEPTIDE 317 PG/ML (0-125); BILIRUBIN,DIRECT 0.1 mg/dL (0.0-0.2); BILIRUBIN,TOTAL 0.3 mg/dL (0.2-1.0); TOTAL PROTEIN, SERUM 7.2 g/dL (6.4-8.2)
[2018-06-13 23:07] LABS: BAND % (MANUAL) 4 % (0.0-5.0)
[2018-06-13 23:08] LABS: EOSINOPHILS % (MANUAL) 3 % (0-4); LYMPHOCYTES % (MANUAL) 8 % (16-48); MONOCYTES % (MANUAL) 15 % (0-11.0); NEUTROPHILS % (MANUAL) 70 (42-76)
[2018-06-13 23:11] LABS: CREATININE 9.4 mg/dL (0.6-1.3)
--- NOTE | 2018-06-13 23:44 | NUR ---
F/C IN PLACE. STILL UNABLE TO COLLECTED URINE AT THIS TIME, WILL CHECK BACK AGAIN
[2018-06-13 23:45] LABS: MAGNESIUM 1.7 mg/dL (1.8-2.4)
[2018-06-14] VITALS (83 sets, daily range): BP systolic 73–132; BP diastolic 25–61
[2018-06-14] MEDS ORDERED: ACET-868 PO (00:03)
[2018-06-14] MEDS ORDERED: DICL50TA9 PO (00:03)
--- NOTE | 2018-06-14 00:10 | NUR ---
PER HOSPITALIST SAAD, PATIENT TRANSPORTER UPGRADE PT TO [facility] STATUS D/T LOW BP. CHARGE NURSE MADE AWARE.
--- NOTE | 2018-06-14 00:33 | NUR ---
REPORT GIVEN TO OSBALDO MEREDITH FOR FORTUNATO
--- NOTE | 2018-06-14 00:54 | NUR ---
TRANSFERRED PT TO 1ST FLOOR/TAMARA VIA ACLS PROTOCOL
[2018-06-14] MEDS ORDERED: IV NS 0.9% 1,000 ML IV PRN (00:58)
[2018-06-14] MEDS ORDERED: HYDROCODONE/APAP 5/325MG 1 EACH TABLET PO PRN (01:00)
[2018-06-14] MEDS ORDERED: ZOLPIDEM TARTRATE 5 MG TABLET PO PRN (01:00)
[2018-06-14] MEDS ORDERED: Z GUARD REMEDY 2 OZ OINT TP PRN (01:00)
[2018-06-14] MEDS ORDERED: MAGNESIUM HYDROXIDE 30 ML UDC PO PRN (01:00)
[2018-06-14] MEDS ORDERED: MAG HYDROX/AL HYDROX/SIMETH 30 ML UDC PO PRN (01:00)
[2018-06-14] MEDS ORDERED: ACETAMINOPHEN 325 MG TABLET PO PRN (01:00)
[2018-06-14] MEDS ORDERED: ONDANSETRON HCL/PF 4 MG/2 ML VIAL IVP PRN (01:00)
--- NOTE | 2018-06-14 01:30 | NUR ---
TAMARA RN ADMITTING NOTES REPORT RECEIVED FROM AMI ROBLERO. PATIENT ADMITTED FROM ER TO ROOM 109 W/ DX ACUTE RENAL FAILURE & HYPOTENSION UNDER CARE OF SAAD BAFFLE INSTALLER. PATIENT A/A/O X4, ABLE TO MAKE NEEDS KNOWN. BREATHING EVEN & UNLABORED & TOLERATING ROOM AIR. DENIES ANY SOB OR DIFFICULTY BREATHING. SINUS RHYTHM W/ PAC & PVC ON TELE MONITOR. LEFT AC & RIGHT FOREARM IV #20 INTACT & PATENT W/ DRESSING CDI. NO REDNESS OR SWELLING NOTED. PATIENT DENIES ANY PAIN OR DISCOMFORT @ THIS TIME. UNABLE TO AMBULATE @ THIS TIME. WYATT CATH NOTED W/ MINIMAL YELLOW URINE. ORIENTED TO ROOM & STAFF & INSTRUCTED TO USE CALL LIGHT FOR ASSISTANCE. ADDITIONAL SAFETY MEASURES IN PLACE. AWAITING ADMITTING ORDERS. WILL CONTINUE TO MONITOR.
[2018-06-14] MEDS ORDERED: CEFTRIAXONE 1 G VIAL ONE (01:40)
[2018-06-14] MEDS ORDERED: IV NS 0.9% 1,000 ML IV ONE (02:00)
--- NOTE | 2018-06-14 02:30 | NUR ---
TAMARA RN NOTES PATIENT'S BP NOTED IN THE 80S. INFORMED SAAD UTILIZATION ENGINEER AND RECEIVED NEW ORDER FOR 1L NS BOLUS. WILL MONITOR CLOSELY.
[2018-06-14] MEDS: CEFTRIAXONE 1 G in IV D5W 50 ML IV SCH ×2 (03:48→21:01)
--- NOTE | 2018-06-14 04:45 | NUR ---
TAMARA RN NOTES PATIENT'S BP STILL IN THE 80S S/P 1L NS BOLUS. INFORMED SAAD HIM ASSISTANT AND RECEIVED ORDERS TO TRANSFER TO ICU, START LEVOPHED DRIP & PICC LINE INSERTION.
[2018-06-14] MEDS ORDERED: NOREPINEPHRINE 4 MG/4 ML AMPUL IV ONE (05:17)
--- NOTE | 2018-06-14 05:23 | NUR ---
TAMARA RN NOTES PATIENT TRANSFERRED TO ICU RM 259 VIA ACLS PROTOCOL. BEDSIDE REPORT GIVEN TO MARCOS ROBLERO.
[2018-06-14] MEDS: NOREPINEPHRINE 16 MG in IV D5W 500 ML IV PRN ×2 (05:24→17:55)
[2018-06-14 07:21] LABS: BASOPHILS # (AUTO) 0.1 /CMM (0.0-0.2); BASOPHILS % (AUTO) 0.6 % (0.0-2.0); EOSINOPHILS % (AUTO) 6.1 % (0.0-6.0); HEMATOCRIT 36 % (39-51); HEMOGLOBIN 11.7 g/dL (13.5-17.5); LYMPHOCYTES # (AUTO) 2.7 /CMM (0.8-4.8); LYMPHOCYTES % (AUTO) 17.8 % (20.0-44.0); MEAN CORPUSCULAR HGB CONC 33 g/dl (31.0-36.0); MEAN CORPUSCULAR VOLUME 86 fL (80-96); MONOCYTES # (AUTO) 2.4 /CMM (0.1-1.30); MONOCYTES % (AUTO) 16.1 % (2.0-12.0); NEUTROPHILS # (AUTO) 8.9 /CMM (1.8-8.9); NEUTROPHILS % (AUTO) 59.4 % (43.0-81.0); PLATELET COUNT (AUTO) 253 /CMM (150-450); WHITE BLOOD COUNT (AUTO) 14.9 K/uL (4.3-11.0)
--- NOTE | 2018-06-14 07:31 | NUR ---
RN NOTES RECEIVED TRANSFERRED PATIENT FROM [facility] DUE TO HYPOTENSION AND ARF. ALLERGIC TO SULFA. PATIENT IS AOX4 FROM FACILITY COMPLAINED OF ABNORMAL CREATINE 9.4 CELESTINE LOW BP 80'S. ABLE TO MAKE KNOWN NEEDS. VERBALIZED UNDERSTANDING OF TRANSFER. NSR WITH PVC'S AND PAC'S SKIN CARE PROVIDED EXCORIATION FROM SCROTAL AREA EXTENDED TO THE SACRUM AND BUTTOCKS NOTED. WOUND CONSULT ORDER. IV SITE ON LAC G 20 AND RFA G 20 RUNNING WITH NS @ 75 ML.HR AND LEVOPHED STARTED. TO KEEP SBP >90MMHG. KEPT PT CLEAN AND COMFORTABLE IN BED. CONSENT SIGNED FOR PICC LINE PLACEMENT VERBALIZED UNDERSTANDING. ENDORSED CONTINUITY OF CARE TO AM NURSE.
--- NOTE | 2018-06-14 07:35 | NUR ---
DR LUNA AT BEDSIDE. PENDING AM LABS
[2018-06-14 07:40] LABS: ALANINE AMINOTRANSFERASE 13 U/L (12-78); ALKALINE PHOSPHATASE 75 U/L (46-116); ASPARTATE AMINOTRANSFERASE 23 U/L (15-37); BILIRUBIN,TOTAL 0.3 mg/dL (0.2-1.0); CALCIUM, SERUM 7.5 mg/dL (8.5-10.1); CARBON DIOXIDE 13 mmol/L (21-32); CHLORIDE 106 mmol/L (98-107); GLUCOSE 93 mg/dL (74-106); MAGNESIUM 1.7 mg/dL (1.8-2.4); POTASSIUM 4.1 mmol/L (3.5-5.1); SODIUM SERUM 137 mmol/L (136-145); TOTAL PROTEIN, SERUM 6.7 g/dL (6.4-8.2); UREA NITROGEN, BLOOD 52 mg/dL (7-18)
[2018-06-14 07:42] LABS: CREATININE 9.3 mg/dL (0.6-1.3)
[2018-06-14 07:43] LABS: PHOSPHORUS 8.3 mg/dL (2.5-4.9)
[2018-06-14 07:44] LABS: CHOLESTEROL 129 mg/dL (<200); HDL CHOLESTEROL 21 mg/dL (40-60); LDL 86 mg/dL (0-99); TRIGLYCERIDES 169 mg/dL (30-150)
--- NOTE | 2018-06-14 07:45 | NUR ---
DR MALONE AT BEDSIDE.
[2018-06-14] MEDS ORDERED: SEVELAMER CARBONATE 800 MG TABLET PO SCH (08:00)
[2018-06-14] MEDS: MULTIVIT W/MINERALS 1 TAB TABLET PO SCH (08:17)
[2018-06-14] MEDS: LEVOTHYROXINE SODIUM 125 MCG TABLET PO SCH (08:17)
[2018-06-14] MEDS: PANTOPRAZOLE 40 MG VIAL IV SCH (08:17)
[2018-06-14] MEDS: HEPARIN SODIUM, PORCINE 5000 UNITS/1 ML VIAL SQ SCH ×2 (08:20→21:02)
[2018-06-14] MEDS: HYDROCHLOROTHIAZIDE 25 MG TABLET PO SCH (08:59)
[2018-06-14] MEDS: LISINOPRIL (20MG) 20 MG TABLET PO SCH (08:59)
[2018-06-14] MEDS ORDERED: DICLOFENAC SODIUM 50 MG TABLET.DR PO PRN (09:00)
[2018-06-14] MEDS: IV NS 0.9% 1,000 ML IV PRN ×2 (10:58→21:05)
[2018-06-14] MEDS ORDERED: DICLOFENAC SODIUM 25 MG TABLET.DR PO PRN (11:30)
[2018-06-14] MEDS: SEVELAMER CARBONATE 0.8 GM POWD.PACK GT SCH ×2 (12:46→17:52)
[2018-06-14] MEDS: NYSTATIN/TRIAMCIN CREAM 15 GM TUBE TP SCH (13:00)
--- NOTE | 2018-06-14 13:46 | NUR ---
WOUND CARE CONSULT WOUND CARE RECEIVED CONSULT FOR EVALUATION OF SACRUM AND BILATERAL BUTTOCKS. WOUND CARE WILL DEFER CONSULT AND ALL TREATMENT PLANS TO THE PLASTIC SURGICAL TEAM WHO ARE CURRENTLY FOLLOWING. PATIENT WITH BRADLEY AT 14, ALL PRESSURE ULCER PREVENTION MEASURES ARE NOTED TO BE IN PLACE. WILL SEE PRN.
[2018-06-14 15:10] LABS: APPEARANCE,URINE CLOUDY (CLEAR); BILIRUBIN,URINE 2+ (NEGATIVE); BLOOD, URINE 3+ Ery/uL (NEGATIVE); COLOR,URINE YELLOW (YELLOW); KETONES,URINE 1+ (NEGATIVE); LEUKOCYTE ESTERASE ,URINE 2+ (NEGATIVE); NITRITE, URINE NEGATIVE (NEGATIVE); PROTEIN,URINE 3+ mg/dl (NEGATIVE); UGLUCOSE NEGATIVE (NEGATIVE); UROBILINOGEN,URINE 0.2 EU/dL (0.2)
[2018-06-14 15:26] LABS: BACTERIA,URINE Few /HPF (None Seen); RBC,URINE 51-80 /HPF (0-2); SQUAMOUS EPITHELIAL CELL,UR Few /HPF (None Seen)
[2018-06-14 15:27] LABS: URINE AMORPHOUS URATE Moderate /HPF (None Seen)
[2018-06-14 16:06] LABS: EOSINOPHIL,URINE None Seen
--- NOTE | 2018-06-14 16:27 | NUR ---
PATIENT X3 BM SINCE 8AM. WATERY NO SOLID PIECES AND ENTIRELY LIQUID. PER PATIENT STARTED TO GET DIARRHEA AFTER STARTING ANTIBIOTICS LAST ADMISSION. SENT STOOL FOR C DIFF
[2018-06-14 18:31] LABS: CREATININE, URINE 142.6 MG/DL (30.0-125.0); URINE TOTAL PROTEIN 274.9 mg/dL (0-11.9)
--- NOTE | 2018-06-14 18:52 | NUR ---
PATIENT RESTING WELL. ALL DUE MEDS GIVEN AND ALL NEEDS MET. SKIN CARE Q2H AND KEEPING CLEAN AND DRY. IV SITES C/D/I/P AND MEDICATIONS RUNNING PER ORDER SEE SPREADSHEET. EDMUNDO INTACT AND PATENT. CARE WILL BE ENDORSED TO RN FOR FORTUNATO
--- NOTE | 2018-06-14 19:30 | NUR ---
Received patient AAO X 4.SR with PVC's and PAC's.Respiration even and unlabored.Levophed gtt infusing for BP support to keep SBP >90 titrated accordingly.FC to gravity drainage with brett urine.Turned and repositioned.Refused dinner.IVF infusing via LUCY PICC LINE and site intact. Denies pain or any discomfort.
[2018-06-14] MEDS: TEMAZEPAM 7.5 MG CAPSULE PO SCH (21:08)
[2018-06-14] MEDS: TIMOLOL 0.5% SOLN OPHTH 5 ML BOTTLE EACHEYE SCH ×2 (21:08→22:57)
--- NOTE | 2018-06-14 22:00 | NUR ---
Patient incontinent of watery stool moderate amount with perineal excoriation noted.Skin care done. Bed bath done.Complete linens changed.Flexi seal applied per order.Turned and repositioned.Vomited small amount light brownish emesis with Restoril pill.Verbalized feels better.Continue monitoring.
[2018-06-15] VITALS (97 sets, daily range): BP systolic 73–133; BP diastolic 27–80
[2018-06-15] MEDS: LATANOPROST EYE DROP 0.005% 2.5 ML BOTTLE EACHEYE SCH ×2 (00:32→21:12)
[2018-06-15] MEDS: NYSTATIN/TRIAMCIN CREAM 15 GM TUBE TP SCH ×2 (00:33→12:00)
[2018-06-15 04:53] LABS: BASOPHILS # (AUTO) 0.1 /CMM (0.0-0.2); BASOPHILS % (AUTO) 0.9 % (0.0-2.0); EOSINOPHILS % (AUTO) 3.6 % (0.0-6.0); HEMATOCRIT 31 % (39-51); HEMOGLOBIN 10.1 g/dL (13.5-17.5); LYMPHOCYTES # (AUTO) 1.5 /CMM (0.8-4.8); LYMPHOCYTES % (AUTO) 11.2 % (20.0-44.0); MEAN CORPUSCULAR HGB CONC 33 g/dl (31.0-36.0); MEAN CORPUSCULAR VOLUME 85 fL (80-96); MONOCYTES # (AUTO) 2.5 /CMM (0.1-1.30); MONOCYTES % (AUTO) 18.3 % (2.0-12.0); PLATELET COUNT (AUTO) 213 /CMM (150-450); RED BLOOD CELL COUNT(AUTO) 3.63 MIL/uL (4.5-6.0); WHITE BLOOD COUNT (AUTO) 13.6 K/uL (4.3-11.0)
[2018-06-15 05:06] LABS: CREATINE KINASE, TOTAL 25 U/L (39-308)
[2018-06-15 05:11] LABS: ALANINE AMINOTRANSFERASE 13 U/L (12-78); ALBUMIN 1.8 g/dL (3.4-5.0); ALKALINE PHOSPHATASE 75 U/L (46-116); ASPARTATE AMINOTRANSFERASE 16 U/L (15-37); BILIRUBIN,TOTAL 0.2 mg/dL (0.2-1.0); CALCIUM, SERUM 7.5 mg/dL (8.5-10.1); CARBON DIOXIDE 13 mmol/L (21-32); CHLORIDE 107 mmol/L (98-107); GLUCOSE 105 mg/dL (74-106); MAGNESIUM 1.5 mg/dL (1.8-2.4); PHOSPHORUS 7.3 mg/dL (2.5-4.9); POTASSIUM 3.6 mmol/L (3.5-5.1); SODIUM SERUM 137 mmol/L (136-145); TOTAL PROTEIN, SERUM 5.7 g/dL (6.4-8.2); UREA NITROGEN, BLOOD 54 mg/dL (7-18)
[2018-06-15 05:13] LABS: CREATININE 8.9 mg/dL (0.6-1.3)
--- NOTE | 2018-06-15 06:00 | NUR ---
Patient resting no apparent distress noted.VS stable.SR with PAC's and PVC's.Levophed gtt infusing. Turned and repositioned.Perineal area appears dry and flexi seal intact with liquid stool in the tube. Will endorse to day shift RN for further management.
[2018-06-15] MEDS: LEVOTHYROXINE SODIUM 125 MCG TABLET PO SCH (07:18)
[2018-06-15] MEDS: IV NS 0.9% 1,000 ML IV PRN ×2 (07:18→16:49)
[2018-06-15] MEDS: PANTOPRAZOLE 40 MG VIAL IV SCH (07:24)
[2018-06-15] MEDS: SEVELAMER CARBONATE 0.8 GM POWD.PACK GT SCH (08:00)
[2018-06-15] MEDS: LISINOPRIL (20MG) 20 MG TABLET PO SCH (08:29)
[2018-06-15] MEDS: MULTIVIT W/MINERALS 1 TAB TABLET PO SCH (08:29)
[2018-06-15] MEDS: HYDROCHLOROTHIAZIDE 25 MG TABLET PO SCH (08:29)
--- NOTE | 2018-06-15 08:30 | NUR ---
PATIENT REFUSING AM MEDICATIONS SECONDARY TO NAUSEA AND VOMIT LAST NIGHT. STATES ZOFRAN DOES NOT WORK FOR HIM AND DOES NOT WANT IVP ZOFRAN.
--- NOTE | 2018-06-15 09:56 | NUR ---
DR ALARCON AT BEDSIDE. UPDATED ON PATIENT CONDITION. AWARE DIARRHEA PENDING C DIFF. N/V ZOFRAN NOT WORKING. PER MD ORDER REGLAN 10MG IVP q6H PRN FOR N/V. INCREASE IVF TO 125/HR AND DC PRN VOLTAREN
[2018-06-15] MEDS ORDERED: METOCLOPRAMIDE HCL 10 MG/2 ML VIAL IV PRN (10:00)
[2018-06-15] MEDS: HEPARIN SODIUM, PORCINE 5000 UNITS/1 ML VIAL SQ SCH ×2 (10:01→21:11)
--- NOTE | 2018-06-15 11:07 | NUR ---
dr raf hollingsworth at bedside. notified patient c/o abd pain, n/v since starting renvela. will f/u
[2018-06-15] MEDS ORDERED: Magnesium 1GM/D5W 100ML PREMIX 100 ML IV SCH (11:30)
--- NOTE | 2018-06-15 12:15 | NUR ---
NOTIFIED DR ALARCON OF PATIENT POSITIVE C DIFF RESULTS. PER FLAGYL 500MG PO Q8H.
[2018-06-15] MEDS: CALCIUM ACETATE 667 MG TABLET PO SCH ×2 (14:23→17:16)
[2018-06-15] MEDS: METRONIDAZOLE 500 MG TABLET PO SCH ×2 (14:23→21:10)
[2018-06-15 15:46] LABS: APPEARANCE,URINE SL CLOUDY (CLEAR); BILIRUBIN,URINE NEGATIVE (NEGATIVE); BLOOD, URINE 3+ Ery/uL (NEGATIVE); COLOR,URINE YELLOW (YELLOW); KETONES,URINE NEGATIVE (NEGATIVE); LEUKOCYTE ESTERASE ,URINE TRACE (NEGATIVE); NITRITE, URINE NEGATIVE (NEGATIVE); PH,URINE 5.5 (5.0-8.0); PROTEIN,URINE 2+ mg/dl (NEGATIVE); UGLUCOSE NEGATIVE (NEGATIVE); UROBILINOGEN,URINE 0.2 EU/dL (0.2)
[2018-06-15] MEDS: NOREPINEPHRINE 16 MG in IV D5W 500 ML IV PRN (15:59)
[2018-06-15 16:16] LABS: BACTERIA,URINE None seen /HPF (None Seen); RBC,URINE 51-80 /HPF (0-2); SQUAMOUS EPITHELIAL CELL,UR Rare /HPF (None Seen)
[2018-06-15 17:02] LABS: EOSINOPHIL,URINE Rare
--- NOTE | 2018-06-15 19:30 | NUR ---
V BELT COVERER RCD PT W/DX RENAL FAILURE. PT A/O x4. NSR ON MONITOR. ON ROOM AIR. CLEAR LUNG SOUNDS. FLEXI SEAL IN PLACE WITH LARGE AMOUNTS OF BROWN LIQUID STOOL. WYATT CATH IN PLACE WITH DIANA COLORED URINE. MILD BLE WEAKNESS NOTED. PT DENIES PAIN. CONTINUE TO MONITOR.
[2018-06-15] MEDS: TEMAZEPAM 7.5 MG CAPSULE PO SCH (21:10)
[2018-06-15] MEDS: CEFTRIAXONE 1 G in IV D5W 50 ML IV SCH (21:10)
--- NOTE | 2018-06-15 21:30 | NUR ---
BOILER CLEANER PT DENIES NAUSEA AT THIS TIME. ABLE TO TOLERATE PO MEDS.
[2018-06-16] VITALS (84 sets, daily range): BP systolic 78–129; BP diastolic 25–77
--- NOTE | 2018-06-16 01:00 | NUR ---
SUPERCALENDER OPERATOR PT TOLERATING ADLs; ASSISTING WITH TURNING. PROVIDED PERICARE TO SACRUM AND BUTTOCKS AREA. CONTINUE TO MONITOR.
[2018-06-16] MEDS: NYSTATIN/TRIAMCIN CREAM 15 GM TUBE TP SCH ×2 (01:16→15:24)
[2018-06-16] MEDS: IV NS 0.9% 1,000 ML IV PRN ×2 (02:10→10:27)
[2018-06-16] MEDS: METRONIDAZOLE 500 MG TABLET PO SCH ×3 (05:04→22:04)
--- NOTE | 2018-06-16 06:40 | NUR ---
FIELD HANDYMAN LEVOPHED AT 4 MCG/MIN; TITRATED TO 2 MCG/MIN WITH SBP 80s. CONTINUE TO MONITOR.
--- NOTE | 2018-06-16 07:05 | NUR ---
RN NOTES RECEIVED PT ON BED, A/Ox4, ON RA , RESPIRATION EVEN AND UNLABORED, NO SOB NOTED, ON TELE SR WITH PVC'S AND PAC'S , HR IN 90'S , FLEXI SEAL IN PLACE WITH BROWN LIQUID STOOL DRAINING, WYATT CATH IN PLACE WITH DIANA COLORED URINE DRAINING , L AC IV SITE G 20 AND R UPPER ARM PICC LINE SITES CLEAN , DRY AND INTACT , LEVO AT 4 MCG/MIN RUNNING VIA R UPPER ARM PICC LINE, SR UP x3, CALL LIGHT WITHIN EASY REACH, BED LOCKED AND IN LOWEST POSITION , CONTINUE TO MONITOR.
[2018-06-16] MEDS: NOREPINEPHRINE 16 MG in IV D5W 500 ML IV PRN (08:14)
[2018-06-16] MEDS: PANTOPRAZOLE 40 MG VIAL IV SCH (08:15)
[2018-06-16] MEDS: MULTIVIT W/MINERALS 1 TAB TABLET PO SCH ×2 (08:16→08:30)
[2018-06-16] MEDS: CALCIUM ACETATE 667 MG TABLET PO SCH ×3 (08:16→17:34)
[2018-06-16] MEDS: LEVOTHYROXINE SODIUM 125 MCG TABLET PO SCH (08:16)
[2018-06-16] MEDS: HEPARIN SODIUM, PORCINE 5000 UNITS/1 ML VIAL SQ SCH ×2 (08:16→22:06)
[2018-06-16 09:55] LABS: BASOPHILS # (AUTO) 0.1 /CMM (0.0-0.2); BASOPHILS % (AUTO) 0.7 % (0.0-2.0); HEMATOCRIT 30 % (39-51); HEMOGLOBIN 9.7 g/dL (13.5-17.5); LYMPHOCYTES # (AUTO) 1.5 /CMM (0.8-4.8); LYMPHOCYTES % (AUTO) 11.8 % (20.0-44.0); MEAN CORPUSCULAR HGB CONC 33 g/dl (31.0-36.0); MEAN CORPUSCULAR VOLUME 85 fL (80-96); MONOCYTES # (AUTO) 2.4 /CMM (0.1-1.30); MONOCYTES % (AUTO) 19.3 % (2.0-12.0); NEUTROPHILS # (AUTO) 8.1 /CMM (1.8-8.9); NEUTROPHILS % (AUTO) 65.2 % (43.0-81.0); PLATELET COUNT (AUTO) 190 /CMM (150-450); RED BLOOD CELL COUNT(AUTO) 3.47 MIL/uL (4.5-6.0); WHITE BLOOD COUNT (AUTO) 12.4 K/uL (4.3-11.0)
[2018-06-16 10:04] LABS: CALCIUM, SERUM 7.7 mg/dL (8.5-10.1); CARBON DIOXIDE 12 mmol/L (21-32); CHLORIDE 112 mmol/L (98-107); GLUCOSE 97 mg/dL (74-106); POTASSIUM 3.4 mmol/L (3.5-5.1); SODIUM SERUM 142 mmol/L (136-145); UREA NITROGEN, BLOOD 51 mg/dL (7-18)
[2018-06-16 10:13] LABS: CREATININE 7.7 mg/dL (0.6-1.3)
--- NOTE | 2018-06-16 11:00 | NUR ---
RN NOTES PT REFUSED AM CARE AT THIS TIME .
[2018-06-16 11:13] LABS: *SPE A/G RATIO 0.6 (0.7-1.7); *SPE ALPHA-1-GLOBULIN 0.4 g/dL (0.0-0.4); *SPE ALPHA-2-GLOBULIN 0.7 g/dL (0.4-1.0); *SPE BETA GLOBULIN 0.8 g/dL (0.7-1.3); *SPE GLOBULIN, TOTAL 3.3 g/dL (2.2-3.9); *SPE M-SPIKE Not Observed g/dL (Not Observed); *SPEGAMMA GLOBULIN 1.4 g/dL (0.4-1.8)
--- NOTE | 2018-06-16 12:00 | NUR ---
RN NOTES DR WALLER NOTIFED REGARDING K=3.4, NO NEW ORDER GIVEN .CONTINUE TO MONITOR .
[2018-06-16 13:13] LABS: PTH, INTACT 133 pg/mL (15-65)
--- NOTE | 2018-06-16 14:00 | NUR ---
RN NOTES REPORT GIVEN TO LUCINA ROBLERO FOR CONTINUITY OF CARE.
--- NOTE | 2018-06-16 14:15 | NUR ---
ICU/RN-RECEIVED PT. FROM OSBALDO HALL PT. SLEEPING, AROUSABLE, EXPRESSIVE OF NEEDS. NO COMPLAINTS. BREATHING COMES EASY. SATS.-93%. EKG SR W/ OCC. UNI FOCAL PVCS AND PACS. BP-96/42. ON LEVOPHED DRIP AT 4 MCG/MIN. WILL TITRATE TO KEEP SBP>90. WILL MONITOR CLOSELY PER PROTOCOL. ON CONTACT ISOLATION FOR C DIFF. PRECAUTIONS IN EFFECT.
--- NOTE | 2018-06-16 16:44 | NUR ---
ICU/RN- PT. C/O PAIN ON RIGHT HAND, 09/09. MEDICATED W/ TYLENOL 650MG PO. WILL REASSESS FOR PRN EFFECTIVENESS.
[2018-06-16] MEDS: VANCOMYCIN HCL 125 MG/2.5 ML ORAL.SUSP PO SCH (17:35)
[2018-06-16] MEDS: TEMAZEPAM 7.5 MG CAPSULE PO SCH (22:04)
[2018-06-16] MEDS: CEFTRIAXONE 1 G in IV D5W 50 ML IV SCH (22:05)
[2018-06-16] MEDS: LATANOPROST EYE DROP 0.005% 2.5 ML BOTTLE EACHEYE SCH (22:05)
[2018-06-16] MEDS: TIMOLOL 0.5% SOLN OPHTH 5 ML BOTTLE EACHEYE SCH (22:09)
[2018-06-17] VITALS (44 sets, daily range): BP systolic 87–136; BP diastolic 40–84
[2018-06-17] MEDS: VANCOMYCIN HCL 125 MG/2.5 ML ORAL.SUSP PO SCH ×4 (00:35→17:56)
[2018-06-17] MEDS: NYSTATIN/TRIAMCIN CREAM 15 GM TUBE TP SCH ×2 (01:00→12:28)
--- NOTE | 2018-06-17 02:55 | NUR ---
TANK WAGON DRIVER. AM CARE. ORAL CARE, BED BATH GIVEN. LINEN CHANGED REMAINING SAME IVF NS 125ML/HM LEVOPHED 4MCG/MIN, HOB ELEVATED. FC PATENT. URINE DRAINING. FLEXA SEAL INTACT. TURN AND REPOSITION Q2H. WILL CONTINUE TO MONITOR. PT C/O RT WRIST PAIN.
[2018-06-17] MEDS: IV NS 0.9% 1,000 ML IV PRN ×2 (02:59→12:24)
[2018-06-17 04:31] LABS: BASOPHILS # (AUTO) 0.1 /CMM (0.0-0.2); BASOPHILS % (AUTO) 0.6 % (0.0-2.0); EOSINOPHILS % (AUTO) 4.2 % (0.0-6.0); HEMATOCRIT 28 % (39-51); HEMOGLOBIN 9.3 g/dL (13.5-17.5); LYMPHOCYTES # (AUTO) 1.2 /CMM (0.8-4.8); LYMPHOCYTES % (AUTO) 9.9 % (20.0-44.0); MEAN CORPUSCULAR HGB CONC 33 g/dl (31.0-36.0); MEAN CORPUSCULAR VOLUME 85 fL (80-96); MONOCYTES # (AUTO) 2.2 /CMM (0.1-1.30); MONOCYTES % (AUTO) 18.5 % (2.0-12.0); NEUTROPHILS # (AUTO) 7.8 /CMM (1.8-8.9); NEUTROPHILS % (AUTO) 66.8 % (43.0-81.0); PLATELET COUNT (AUTO) 157 /CMM (150-450); RED BLOOD CELL COUNT(AUTO) 3.34 MIL/uL (4.5-6.0); WHITE BLOOD COUNT (AUTO) 11.7 K/uL (4.3-11.0)
[2018-06-17 04:47] LABS: CALCIUM, SERUM 7.7 mg/dL (8.5-10.1); CARBON DIOXIDE 15 mmol/L (21-32); CHLORIDE 116 mmol/L (98-107); CREATININE 6.9 mg/dL (0.6-1.3); GLUCOSE 107 mg/dL (74-106); MAGNESIUM 1.4 mg/dL (1.8-2.4); PHOSPHORUS 5.1 mg/dL (2.5-4.9); POTASSIUM 3.1 mmol/L (3.5-5.1); SODIUM SERUM 145 mmol/L (136-145); UREA NITROGEN, BLOOD 49 mg/dL (7-18)
[2018-06-17] MEDS: METRONIDAZOLE 500 MG TABLET PO SCH ×3 (05:06→20:26)
--- NOTE | 2018-06-17 07:30 | NUR ---
INITIAL: RECEIVED PT. FROM OSBALDO LE PT. ALERT AND ORIENTED X 4, EXPRESSIVE OF NEEDS. COMPLAINTS TO RIGHT WRIST AREA NOTED TO BE SWOLLEN WITH REDNESS. . BREATHING COMES EASY. SATS.-97% EKG SR W/ OCCASIONAL UNI FOCAL PVCS AND PACS. ON LEVOPHED DRIP AT 4 MCG/MIN. WILL TITRATE TO KEEP SBP>90. WILL MONITOR CLOSELY PER PROTOCOL. ON CONTACT ISOLATION FOR C DIFF. PRECAUTIONS IN EFFECT.
[2018-06-17] MEDS: LEVOTHYROXINE SODIUM 125 MCG TABLET PO SCH (07:54)
[2018-06-17] MEDS: CALCIUM ACETATE 667 MG TABLET PO SCH ×3 (07:54→17:56)
[2018-06-17] MEDS: PANTOPRAZOLE 40 MG VIAL IV SCH (07:54)
[2018-06-17] MEDS: MULTIVIT W/MINERALS 1 TAB TABLET PO SCH ×3 (08:57→09:07)
[2018-06-17] MEDS ORDERED: POTASSIUM CHLORIDE 20 MEQ TAB.PRT.SR PO ONE (09:00)
[2018-06-17] MEDS: HEPARIN SODIUM, PORCINE 5000 UNITS/1 ML VIAL SQ SCH ×2 (09:01→20:33)
[2018-06-17] MEDS: Magnesium 1GM/D5W 100ML PREMIX 100 ML IV SCH ×4 (09:51→12:21)
[2018-06-17] MEDS: NOREPINEPHRINE 16 MG in IV D5W 500 ML IV PRN (12:24)
--- NOTE | 2018-06-17 18:16 | NUR ---
CLOSING PT REMAINS SAFE ALL MEDICATIONS GIVEN FLEISEAL DRAINED AND NEW BAG PLACED ZERO'D WYATT COLLECTION BAG DRAINING WELL PIV PICC LINES INTACT PT GIVEN DINNER WILL ENDORSE TO PM SHIFT X-RAY TAKEN OF RIGHT WRIST MD REPORT DONE
--- NOTE | 2018-06-17 19:23 | NUR ---
design engineer agricultural equipment. initial assessment. received the pt rest on the bed. awake, alert, follow commands. cardiac nurse specialist showing nsr. iv rt upper arm picc line ivf ns 125ml/h, levophed 4mch/min, hob elevated. fc patent urine draining. flexa seal intact, will continue to monitor vitals.
[2018-06-17] MEDS: CEFTRIAXONE 1 G in IV D5W 50 ML IV SCH (20:26)
[2018-06-17] MEDS: LATANOPROST EYE DROP 0.005% 2.5 ML BOTTLE EACHEYE SCH (21:09)
[2018-06-17] MEDS: TIMOLOL 0.5% SOLN OPHTH 5 ML BOTTLE EACHEYE SCH (21:09)
[2018-06-17] MEDS: TEMAZEPAM 7.5 MG CAPSULE PO SCH (21:09)
[2018-06-18] VITALS (87 sets, daily range): BP systolic 86–145; BP diastolic 40–85
[2018-06-18] MEDS: VANCOMYCIN HCL 125 MG/2.5 ML ORAL.SUSP PO SCH ×4 (00:35→17:28)
[2018-06-18] MEDS: NYSTATIN/TRIAMCIN CREAM 15 GM TUBE TP SCH ×2 (00:35→14:01)
--- NOTE | 2018-06-18 04:17 | NUR ---
DISTRICT WILDLIFE MANAGER. AM CARE, ORAL CARE, BED BATH GIVEN. PT ON ROOM AIR. SAT 97%, NO ACUTE DISTRESS NOTED. ASE CERTIFIED TECHNICIAN SHOWING NSR. IV RT UPPER AR, PICC LINE IVF NS 125ML/H, LEVOPHED 3MCG/MIN. FC PATENT URINE DRAINING. FLEXA SEAL INTACT. HOB ELEVATED. TURN AND REPOSITION Q2H. AFEBRILE. WILL CONTINUE TO MONITOR VITALS.
[2018-06-18 05:05] LABS: CARBON DIOXIDE 15 mmol/L (21-32); CHLORIDE 117 mmol/L (98-107); CREATININE 5.5 mg/dL (0.6-1.3); GLUCOSE 105 mg/dL (74-106); MAGNESIUM 2.1 mg/dL (1.8-2.4); POTASSIUM 3.4 mmol/L (3.5-5.1); SODIUM SERUM 146 mmol/L (136-145); UREA NITROGEN, BLOOD 42 mg/dL (7-18)
[2018-06-18] MEDS: METRONIDAZOLE 500 MG TABLET PO SCH ×3 (05:21→21:15)
[2018-06-18] MEDS: IV NS 0.9% 1,000 ML IV PRN ×2 (05:22→15:52)
--- NOTE | 2018-06-18 07:05 | NUR ---
RN NOTES RECEIVED PT ON BED, A/Ox4, RESPIRATION EVEN AND UNLABORED, ON RA , NO SOB NOTED, ON TELE SR HR IN 70'S, RIGHT UPPER ARM PICC LINE AND L AC IV SITE G 20 CLEAN, DRY AND INTACT WITH LEVO AT 3MCG/MN RUNNING , NS AT 125CC/HR , WYATT DRAINING TO GRAVITY , FLEXI SEAL DRINING TO GRAVITY WITH DARK GREENISH LOOSE STOOL , SR UP x3, CALL LIGHT WITHIN EASY REACH, BED LOCKED AND IN LOWEST POSITION , CONTINUE TO MONITOR.
[2018-06-18] MEDS: CALCIUM ACETATE 667 MG TABLET PO SCH ×3 (08:06→17:28)
[2018-06-18] MEDS: PANTOPRAZOLE 40 MG VIAL IV SCH (08:06)
[2018-06-18] MEDS: MULTIVIT W/MINERALS 1 TAB TABLET PO SCH (08:07)
[2018-06-18] MEDS: HEPARIN SODIUM, PORCINE 5000 UNITS/1 ML VIAL SQ SCH ×2 (08:07→21:18)
[2018-06-18] MEDS: HYDROMORPHONE INJ 2 MG/ML DISP.SYRIN IV PRN ×2 (08:15→21:29)
[2018-06-18] MEDS: LEVOTHYROXINE SODIUM 125 MCG TABLET PO SCH (08:21)
--- NOTE | 2018-06-18 09:00 | NUR ---
RN NOTES DR WALLER NOTIFED REGARDING K=3.4, NO NEW ORDER GIVEN , CONTINUE TO MONITOR .
[2018-06-18] MEDS: predniSONE 20 MG TABLET PO SCH (09:29)
--- NOTE | 2018-06-18 15:00 | NUR ---
RN NOTES SMALL AMOUNT OF LOOSE STOOL NOTED IN FLEXI SEAL, TUBE D/C'ED PER MD ORDER .
[2018-06-18] MEDS: NOREPINEPHRINE 16 MG in IV D5W 500 ML IV PRN (17:29)
--- NOTE | 2018-06-18 18:57 | NUR ---
RN NOTES PT STABLE, LEVO AT 1MCG/MIN AT THIS TIME, ON RA , NO SIGNIFICANT CHANGES NOTED ON THIS SHIFT, WILL ENDORSE TO WEED ERADICATOR NURSE FOR CONTINUITY OF CARE .
--- NOTE | 2018-06-18 19:00 | NUR ---
SUPERVISOR PLASMA NOTES RECEIVED PATIENT AWAKE,ALERT,NOT IN ANY DISTRESS,CONVERSES,COHERENT AND APPROPRIATE.STILL ON LEVOPHED DRIP FOR BP SUPPORT ,WILL TITRATE TOLERATED.COMFORT CARE DONE,NEEDS ATTENDED.
[2018-06-18] MEDS: CEFTRIAXONE 1 G in IV D5W 50 ML IV SCH (21:15)
[2018-06-18] MEDS: TEMAZEPAM 7.5 MG CAPSULE PO SCH (21:15)
[2018-06-18] MEDS: TIMOLOL 0.5% SOLN OPHTH 5 ML BOTTLE EACHEYE SCH (21:17)
[2018-06-18] MEDS: LATANOPROST EYE DROP 0.005% 2.5 ML BOTTLE EACHEYE SCH (21:17)
[2018-06-19] VITALS (44 sets, daily range): BP systolic 84–136; BP diastolic 40–72
--- NOTE | 2018-06-19 | NUR ---
HOSPITAL ADMISSIONS CLERK NOTES REMAINS STABLE,AWAKE,ALERT,BP STILL LABILE,STILL UNABLE TO WEAN OFF LEVOPHED.NEEDS ATTENDED.WILL CONTINU TO MONITOR BP .
[2018-06-19] MEDS: VANCOMYCIN HCL 125 MG/2.5 ML ORAL.SUSP PO SCH ×4 (00:22→16:59)
[2018-06-19] MEDS: NYSTATIN/TRIAMCIN CREAM 15 GM TUBE TP SCH ×2 (00:27→12:18)
[2018-06-19] MEDS: IV NS 0.9% 1,000 ML IV PRN ×2 (03:48→16:30)
--- NOTE | 2018-06-19 04:00 | NUR ---
OUTPATIENT PSYCHIATRIST NOTES STABLE,AWAKE,ALERT,NOT IJ NAY DISTRESS.NEEDS ATTENDED.AM BATH DONE,SKIN CARE DONE(SACRAL,PERINEAL REDNESS,ERYTHEMATOUS(FUNGAL SKIN IRRITATION),applied nystatin cream
[2018-06-19] MEDS: METRONIDAZOLE 500 MG TABLET PO SCH ×3 (05:53→20:36)
--- NOTE | 2018-06-19 07:00 | NUR ---
PIE FILLER NOTES REPORT GIVEN TO YAAKOV ROBLERO,PATIENT REMAINS STABLE ,STILL ON LOW DOSE LEVOPHED.
--- NOTE | 2018-06-19 07:15 | NUR ---
RN NOTES PATIENT RECEIVED SLEEPING IN BED COMFORTABLY, EASILY AROUSABLE DURING CARE.ABLE TO MAKE NEEDS KNOWN,REPORTS PAIN TO RIGHT WRIST UPON MOVEMENT TOLERABLE AT THIS TIME. CONTINUED ON LEVOPHED AT THIS TIME WILL CONTINUE TO MONITOR, RESPIRATIONS EVEN AND UNLABORED, IN NO APPARENT PAIN OR DISCOMFORT. IV ACCESS TO RIGHT UPPER ARM PATENT AND INTACT NO REDNESS OR INFILTRATION NOTED. WYATT CATETHER INTACT WILL CONTINUE TO MONITOR.KEPT CLEAN DRY AND COMFORTABLE WILL CONTINUE TO MONITOR
[2018-06-19] MEDS: LEVOTHYROXINE SODIUM 125 MCG TABLET PO SCH (08:08)
[2018-06-19] MEDS: CALCIUM ACETATE 667 MG TABLET PO SCH ×3 (08:08→18:21)
[2018-06-19] MEDS: MULTIVIT W/MINERALS 1 TAB TABLET PO SCH ×2 (08:08→09:00)
[2018-06-19] MEDS: PANTOPRAZOLE 40 MG VIAL IV SCH (08:08)
[2018-06-19] MEDS: predniSONE 20 MG TABLET PO SCH (08:09)
[2018-06-19] MEDS: HEPARIN SODIUM, PORCINE 5000 UNITS/1 ML VIAL SQ SCH ×2 (08:10→20:38)
--- NOTE | 2018-06-19 09:45 | NUR ---
RN NOTES SEEN AND EXAMINED BY DR. LUX WITH OKAY TO TRANSFER TO TELE UPON AVAILABILITY WILL CONTINUE TO MONITOR AT THIS TIME
[2018-06-19 10:40] LABS: BASOPHILS % (AUTO) 0.1 % (0.0-2.0); EOSINOPHILS % (AUTO) 0.3 % (0.0-6.0); HEMATOCRIT 26 % (39-51); HEMOGLOBIN 8.5 g/dL (13.5-17.5); LYMPHOCYTES # (AUTO) 1.4 /CMM (0.8-4.8); LYMPHOCYTES % (AUTO) 12.9 % (20.0-44.0); MEAN CORPUSCULAR HGB CONC 33 g/dl (31.0-36.0); MEAN CORPUSCULAR VOLUME 85 fL (80-96); MONOCYTES # (AUTO) 1.1 /CMM (0.1-1.30); MONOCYTES % (AUTO) 9.6 % (2.0-12.0); NEUTROPHILS # (AUTO) 8.5 /CMM (1.8-8.9); NEUTROPHILS % (AUTO) 77.1 % (43.0-81.0); PLATELET COUNT (AUTO) 155 /CMM (150-450); RED BLOOD CELL COUNT(AUTO) 3.06 MIL/uL (4.5-6.0); WHITE BLOOD COUNT (AUTO) 11.1 K/uL (4.3-11.0)
[2018-06-19 10:51] LABS: CALCIUM, SERUM 7.7 mg/dL (8.5-10.1); CARBON DIOXIDE 16 mmol/L (21-32); CHLORIDE 116 mmol/L (98-107); CREATININE 4.3 mg/dL (0.6-1.3); GLUCOSE 141 mg/dL (74-106); POTASSIUM 3.3 mmol/L (3.5-5.1); SODIUM SERUM 146 mmol/L (136-145); UREA NITROGEN, BLOOD 41 mg/dL (7-18)
[2018-06-19] MEDS ORDERED: POTASSIUM CHLORIDE 20 MEQ POWDER PACKET PO ONE (12:00)
--- NOTE | 2018-06-19 17:30 | NUR ---
LAB INSTRUCTOR NOTES RECEIVED PT IN BED. BEDSIDE REPORT GIVEN BY ICU NURSE. PT IS STABLE ON ROOM AIR. CDIFF PRECAUTIONS MAINTAINED. VS: 136/54 94 HR 98% O2 20RR. PICC LINE FLUSHED/PATENT. IV FLUIDS HUNG AND RUNNING. ON TELE SR W/ PVC'S WITH BBB. F/C DRAINING TEA COLORED URINE. BED IN LOCKED/LOWEST POSITION. ORIENTED TO UNIT/ROOM. PT IS A/OX3. CALL LIGHT IN REACH.
--- NOTE | 2018-06-19 18:10 | NUR ---
RN NOTES PATIENT AWAKE ALERT AND VERBALLY RESPONSIVE,ABLE TO MAKE NEEDS KNOWN,REPORTS PAIN TO RIGHT WRIST UPON MOVEMENT TOLERABLE AT THIS TIME. CONTINUED IV HYDRATION ORDERED RESPIRATIONS EVEN AND UNLABORED, IN NO APPARENT PAIN OR DISCOMFORT. IV ACCESS TO RIGHT UPPER ARM PATENT AND INTACT NO REDNESS OR INFILTRATION NOTED. WYATT CATHETER INTACT WILL CONTINUE TO MONITOR.TRANSFERRED TO ROOM 102-1 VIA ACLS PROTOCOL, ENDORSED TO RECEIVING RN FOR CONTINUITY OF CARE
--- NOTE | 2018-06-19 19:09 | NUR ---
PICTURES EDITOR NOTES REPORTED TO PM SHIFT FOR FORTUNATO. PT NOT IN DISTRESS. RESTING IN BED. ALL NEEDS ATTENDED TO. CALL LIGHT IN REACH.
--- NOTE | 2018-06-19 19:30 | NUR ---
INFORMATION SECURITY MANAGER OPENING NOTES RECEIVED PATIENT IN BED AWAKE, ALERT AND ORIENTED X3, VERBALLY RESPONSIVE, ABLE TO MAKE NEEDS KNOWN. BREATHING EVEN AND UNLABORED. NO SOB NOTED. TOLERATING ROOM AIR. NO COMPLAINTS OF PAIN OR DISCOMFORT. NO FACIAL GRIMACING. PICC LINE ON RIGHT UPPER ARM INTACT AND PATENT WITH NS RUNNING AT 85ML/HR. SKIN DRY AND WARM TO TOUCH. AFEBRILE. PATIENT NOTED WITH YWATT CATH, INTACT AND PATENT - DRAINING TEA COLORED URINE. ALL OTHER NEEDS ATTENDED TO. SAFETY MEASURES IN PLACE. CALL LIGHT WITHIN REACH. WILL CONTINUE TO MONITOR.
[2018-06-19] MEDS: CEFTRIAXONE 1 G in IV D5W 50 ML IV SCH (20:38)
[2018-06-19] MEDS: LATANOPROST EYE DROP 0.005% 2.5 ML BOTTLE EACHEYE SCH (21:32)
[2018-06-19] MEDS: TIMOLOL 0.5% SOLN OPHTH 5 ML BOTTLE EACHEYE SCH (21:32)
[2018-06-19] MEDS: TEMAZEPAM 7.5 MG CAPSULE PO SCH (21:32)
[2018-06-20] VITALS (8 sets, daily range): BP systolic 115–138; BP diastolic 57–70
[2018-06-20] MEDS: VANCOMYCIN HCL 125 MG/2.5 ML ORAL.SUSP PO SCH ×4 (00:37→17:36)
[2018-06-20] MEDS: NYSTATIN/TRIAMCIN CREAM 15 GM TUBE TP SCH ×2 (00:40→12:43)
[2018-06-20] MEDS: METRONIDAZOLE 500 MG TABLET PO SCH ×3 (05:22→21:01)
[2018-06-20] MEDS: IV NS 0.9% 1,000 ML IV PRN (05:27)
--- NOTE | 2018-06-20 07:30 | NUR ---
RN AM SHIFT NOTE PATIENT ALERT AND ORIENTED X4. IN BED, CONTACT ISOLATION MEASURES IN PLACE. WYATT PATENT AND INTACT. DRAINING WELL. RIGHT UPPER PICC LINE PATENT AND INTACT FLUSHING. CONTINUE IV ATB, MONITOR PATIENT.
--- NOTE | 2018-06-20 07:36 | NUR ---
LEAD AUDITOR CLOSING NOTES PATIENT RESTING IN BED. NO ACUTE CHANGES THROUGHOUT SHIFT. BREATHING EVEN AND UNLABORED. NO SOB NOTED. TOLERATING ROOM AIR. NO COMPLAINTS OF PAIN OR DISCOMFORT. NO FACIAL GRIMACING. PICC LINE ON RIGHT UPPER ARM INTACT AND PATENT WITH NS RUNNING AT 85ML/HR. SKIN DRY AND WARM TO TOUCH. AFEBRILE. PATIENT WITH [place]ATT CATH, INTACT AND PATENT - DRAINING TEA COLORED URINE. KEPT CLEAN DRY AND COMFORTABLE. ALL OTHER NEEDS ATTENDED TO. SAFETY MEASURES IN PLACE. CALL LIGHT WITHIN REACH. ENDORSED TO ONCOMING NURSE FOR FORTUNATO.
[2018-06-20] MEDS: predniSONE 20 MG TABLET PO SCH (08:41)
[2018-06-20] MEDS: PANTOPRAZOLE 40 MG VIAL IV SCH (08:42)
[2018-06-20] MEDS: LEVOTHYROXINE SODIUM 125 MCG TABLET PO SCH (08:42)
[2018-06-20] MEDS: CALCIUM ACETATE 667 MG TABLET PO SCH ×3 (08:42→17:36)
[2018-06-20] MEDS: MULTIVIT W/MINERALS 1 TAB TABLET PO SCH (08:42)
[2018-06-20] MEDS: HEPARIN SODIUM, PORCINE 5000 UNITS/1 ML VIAL SQ SCH ×2 (09:00→21:03)
[2018-06-20 09:10] LABS: BASOPHILS % (AUTO) 0.3 % (0.0-2.0); EOSINOPHILS % (AUTO) 0.3 % (0.0-6.0); HEMATOCRIT 28 % (39-51); HEMOGLOBIN 9.3 g/dL (13.5-17.5); LYMPHOCYTES # (AUTO) 2.2 /CMM (0.8-4.8); LYMPHOCYTES % (AUTO) 21.5 % (20.0-44.0); MEAN CORPUSCULAR HGB CONC 33 g/dl (31.0-36.0); MEAN CORPUSCULAR VOLUME 84 fL (80-96); MONOCYTES # (AUTO) 0.8 /CMM (0.1-1.30); MONOCYTES % (AUTO) 7.9 % (2.0-12.0); NEUTROPHILS # (AUTO) 7.3 /CMM (1.8-8.9); PLATELET COUNT (AUTO) 168 /CMM (150-450); RED BLOOD CELL COUNT(AUTO) 3.34 MIL/uL (4.5-6.0); WHITE BLOOD COUNT (AUTO) 10.4 K/uL (4.3-11.0)
[2018-06-20 09:29] LABS: ALANINE AMINOTRANSFERASE 15 U/L (12-78); ALBUMIN 1.9 g/dL (3.4-5.0); ALKALINE PHOSPHATASE 68 U/L (46-116); ASPARTATE AMINOTRANSFERASE 21 U/L (15-37); BILIRUBIN,TOTAL 0.2 mg/dL (0.2-1.0); CALCIUM, SERUM 7.6 mg/dL (8.5-10.1); CARBON DIOXIDE 15 mmol/L (21-32); CHLORIDE 118 mmol/L (98-107); CREATININE 3.5 mg/dL (0.6-1.3); GLUCOSE 125 mg/dL (74-106); MAGNESIUM 1.3 mg/dL (1.8-2.4); PHOSPHORUS 2.2 mg/dL (2.5-4.9); POTASSIUM 3.2 mmol/L (3.5-5.1); SODIUM SERUM 147 mmol/L (136-145); TOTAL PROTEIN, SERUM 5.9 g/dL (6.4-8.2); UREA NITROGEN, BLOOD 36 mg/dL (7-18)
[2018-06-20] MEDS: POTASSIUM CL. PREMIX PERIPHER. 50 ML IV SCH ×4 (11:53→14:42)
[2018-06-20] MEDS: Magnesium 1GM/D5W 100ML PREMIX 100 ML IV SCH ×3 (11:53→12:36)
[2018-06-20] MEDS ORDERED: K PHOS NEUTRAL 250 MG TABLET PO ONE (16:00)
--- NOTE | 2018-06-20 19:15 | NUR ---
TELE/RN INITIAL NOTES RECEIVED PT IN BED, A/OX3. SR WITH PAC ON TELE. ON ROOM AIR, NO SOB NOTED. VERBALIZED DISCOMFORT ON RIGHT ARM WITH PAIN SCALE OF 3/10, PER PT, PAIN IS TOLERABLE AT THIS TIME. WITH ONGOING IVF NS AT 85 ML/HR INFUSING WELL ON LUCY PICC LINE, C/D/I. WITH INTACT AND IN PLACED WYATT CATH DRAINING TEA COLORED URINE BY GRAVITY. ON CONTACT ISOLATION FOR CDIFF. SAFETY MEASURES IN PLACED. CALL LIGHT WITHIN EASY REACH. WILL CONT TO MONITOR
[2018-06-20] MEDS: TEMAZEPAM 7.5 MG CAPSULE PO SCH (21:01)
[2018-06-20] MEDS: TIMOLOL 0.5% SOLN OPHTH 5 ML BOTTLE EACHEYE SCH (21:01)
[2018-06-20] MEDS: LATANOPROST EYE DROP 0.005% 2.5 ML BOTTLE EACHEYE SCH (21:02)
[2018-06-21] VITALS: BP 127/57
[2018-06-21] MEDS: VANCOMYCIN HCL 125 MG/2.5 ML ORAL.SUSP PO SCH ×3 (00:19→12:14)
[2018-06-21] MEDS: NYSTATIN/TRIAMCIN CREAM 15 GM TUBE TP SCH ×2 (00:20→12:59)
[2018-06-21] MEDS: IV NS 0.9% 1,000 ML IV PRN (02:10)
[2018-06-21 04:00] VITALS: BP 122/60
[2018-06-21] MEDS: METRONIDAZOLE 500 MG TABLET PO SCH ×2 (05:03→12:58)
[2018-06-21 06:26] LABS: BASOPHILS % (AUTO) 0.1 % (0.0-2.0); EOSINOPHILS % (AUTO) 0.6 % (0.0-6.0); HEMATOCRIT 23 % (39-51); HEMOGLOBIN 7.9 g/dL (13.5-17.5); LYMPHOCYTES # (AUTO) 1.8 /CMM (0.8-4.8); LYMPHOCYTES % (AUTO) 21.1 % (20.0-44.0); MEAN CORPUSCULAR HGB CONC 34 g/dl (31.0-36.0); MEAN CORPUSCULAR VOLUME 84 fL (80-96); MONOCYTES # (AUTO) 0.8 /CMM (0.1-1.30); MONOCYTES % (AUTO) 9.2 % (2.0-12.0); NEUTROPHILS # (AUTO) 5.9 /CMM (1.8-8.9); PLATELET COUNT (AUTO) 154 /CMM (150-450); RED BLOOD CELL COUNT(AUTO) 2.77 MIL/uL (4.5-6.0); WHITE BLOOD COUNT (AUTO) 8.5 K/uL (4.3-11.0)
[2018-06-21 06:34] LABS: ALANINE AMINOTRANSFERASE 15 U/L (12-78); ALBUMIN 1.7 g/dL (3.4-5.0); ALKALINE PHOSPHATASE 63 U/L (46-116); ASPARTATE AMINOTRANSFERASE 24 U/L (15-37); BILIRUBIN,TOTAL 0.2 mg/dL (0.2-1.0); CALCIUM, SERUM 7.4 mg/dL (8.5-10.1); CARBON DIOXIDE 18 mmol/L (21-32); CHLORIDE 120 mmol/L (98-107); CREATININE 2.9 mg/dL (0.6-1.3); GLUCOSE 85 mg/dL (74-106); MAGNESIUM 1.5 mg/dL (1.8-2.4); PHOSPHORUS 2.4 mg/dL (2.5-4.9); POTASSIUM 3.7 mmol/L (3.5-5.1); SODIUM SERUM 150 mmol/L (136-145); TOTAL PROTEIN, SERUM 5.2 g/dL (6.4-8.2); UREA NITROGEN, BLOOD 31 mg/dL (7-18)
--- NOTE | 2018-06-21 07:08 | NUR ---
RN NOTES PT IN STABLE CONDITION. NO ACUTE CHANGES THROUGHOUT SHIFT. ALL NEEDS ANTICIPATED. ENDORSED TO AM SHIFT RN FOR FORTUNATO
--- NOTE | 2018-06-21 07:15 | NUR ---
RN OPENING NOTE RECEIVED PATIENT IN BED AWAKE AND ALERT. ON ROOM AIR. HAS RIGHT UPPER ARM PICC LINE NS RUNNING AT 85 ML/HR. ON REGULAR DIET. A&Ox3-4. HAS BILATERAL REDNESS ON BUTTOCKS. ALSO ON SCROTUM AND INNER THIGHS. NO COMPLAINS OF ANY SOB AT THIS TIME, OR ANY PAIN. BED LOCKED AND ON LOWEST POSITION. CALL LIGHT WITHIN REACH. WILL CONT TO MONITOR.
[2018-06-21] MEDS: LEVOTHYROXINE SODIUM 125 MCG TABLET PO SCH (07:50)
[2018-06-21] MEDS: PANTOPRAZOLE 40 MG VIAL IV SCH (07:50)
[2018-06-21] MEDS: CALCIUM ACETATE 667 MG TABLET PO SCH (07:50)
[2018-06-21 08:00] VITALS: BP 115/56
--- NOTE | 2018-06-21 08:15 | NUR ---
RN NOTE PATIENT COMPLAINED OF PAIN 5/10. BUT REFUSED ANY PAIN MEDICATIONS. REQUESTED FOR THE LIGHTS TO BE TURNED OFF
[2018-06-21] MEDS: Magnesium 1GM/D5W 100ML PREMIX 100 ML IV SCH ×2 (08:54→09:41)
[2018-06-21] MEDS: predniSONE 20 MG TABLET PO SCH (08:55)
[2018-06-21] MEDS: MULTIVIT W/MINERALS 1 TAB TABLET PO SCH (08:55)
[2018-06-21] MEDS: HEPARIN SODIUM, PORCINE 5000 UNITS/1 ML VIAL SQ SCH (08:57)
[2018-06-21 12:00] VITALS: BP_SYST 127; BP_SYST 136; BP_DIAS 55; BP_DIAS 62
[2018-06-21] MEDS ORDERED: K PHOS NEUTRAL 250 MG TABLET PO ONE (13:00)
[2018-06-21] MEDS ORDERED: NYST15CR2 TP (14:20)
[2018-06-21] MEDS ORDERED: LEVO500T90 PO (14:20)
[2018-06-21] MEDS ORDERED: METR500T PO (14:20)
[2018-06-21] MEDS ORDERED: PRED20TA PO ×2 (14:20→15:13)
[2018-06-21] MEDS ORDERED: HYDR-3972 PO (14:20)
[2018-06-21 16:00] VITALS: BP_SYST 127; BP_DIAS 62; BP_DIAS 65
== END 2018-06-21 18:55 | DRG 683 ==
LOC: ER 21:26 → TELE 06-14 00:03 → TELE-TD 06-14 00:20 → ICU 06-14 04:58 → TELE1 06-19 17:53
PROVIDERS: ADMIT Internal Medicine; ATTEND Student in an Organized Health Care Education/Training Program
PROC: 02HV33Z Insertion of Infusion Device into Superior Vena Cava, Percutaneous Approach (ICD-10-PCS; principal; 2018-06-14)
PROC: B548ZZA Ultrasonography of Superior Vena Cava, Guidance (ICD-10-PCS; 2018-06-14)
DX: N17.0 Acute kidney failure with tubular necrosis (principal); A04.72 Enterocolitis due to Clostridium difficile, not specified as recurrent; N12 Tubulo-interstitial nephritis, not specified as acute or chronic; T50.2X5A Adverse effect of carbonic-anhydrase inhibitors, benzothiadiazides and other diuretics, initial encounter; I12.9 Hypertensive chronic kidney disease with stage 1 through stage 4 chronic kidney disease, or unspecified chronic kidney disease; E03.9 Hypothyroidism, unspecified; L30.4 Erythema intertrigo; N18.9 Chronic kidney disease, unspecified; M10.9 Gout, unspecified; K76.0 Fatty (change of) liver, not elsewhere classified; K43.9 Ventral hernia without obstruction or gangrene; Z85.51 Personal history of malignant neoplasm of bladder; E66.9 Obesity, unspecified; Z68.31 Body mass index [BMI] 31.0-31.9, adult; L22 Diaper dermatitis; R32 Unspecified urinary incontinence; Z87.442 Personal history of urinary calculi; Z79.899 Other long term (current) drug therapy; T46.4X5A Adverse effect of angiotensin-converting-enzyme inhibitors, initial encounter
CPT/HCPCS: 36415; 36569; 71045-TC; 73110; 76770-TC; 80048-TC; 80053-TC; 80061-TC; 80076-TC; 81000-TC; 82550-TC; 82570-TC; 83605-TC; 83735-TC; 83880; 83970; 84100-TC; 84155; 84155-TC; 84165; 84300-TC; 84484-TC; 84550-TC; 85025-TC; 85730-TC; 87040-TC; 87081-TC; 87086-TC; 93971-TC; 97110-TC; 97530-TC; C1751; C9113; G0378; J0696; J1170; J1644; J2405; J2765; J3475; J3480; J3490; J7030; J7060

== ENCOUNTER 2018-09-08 09:31 | Inpatient (IN) | payer MEDICARE ==
[~2018-09-08] VITALS: Ht 185.4 cm; Wt 88.0 kg
[~2018-09-08 09:31] MED LIST changes: +ACET-868 PO; +DICL50TA9 PO; +HYDR-3972 PO; +LEVO500T90 PO; -MERO500V3 IV; +METR500T PO; +NYST15CR2 TP; +PRED20TA PO
--- NOTE | 2018-09-08 09:36 | NUR ---
BIBRA C/O BILATERAL LOWER EXTERMITY PAIN X2 DAYS. -TRAUMA, HX GOUT, UNABLE TO BARE WEIGHT . TO ER BED 12, HOOKED TO MONITOR, CHANGED TO GOWN, PROVIDED W WARM BLANKET, AWAITING MD LOVELACE.
--- NOTE | 2018-09-08 09:40 | NUR ---
DR MEDEROS AT BEDSIDE
[2018-09-08] MEDS ORDERED: IV NS 0.9% 1,000 ML BAG IV ONE ×2 (10:00→12:00)
[2018-09-08 10:11] LABS: CALCIUM, SERUM 8.8 mg/dL (8.5-10.1); CARBON DIOXIDE 21 mmol/L (21-32); CHLORIDE 111 mmol/L (98-107); CREATININE 1.5 mg/dL (0.6-1.3); GLUCOSE 91 mg/dL (74-106); POTASSIUM 4.5 mmol/L (3.5-5.1); SODIUM SERUM 144 mmol/L (136-145); UREA NITROGEN, BLOOD 43 mg/dL (7-18)
[2018-09-08 10:17] LABS: ALANINE AMINOTRANSFERASE 32 U/L (12-78); ALKALINE PHOSPHATASE 75 U/L (46-116); ASPARTATE AMINOTRANSFERASE 23 U/L (15-37); BILIRUBIN,DIRECT 0.1 mg/dL (0.0-0.2); BILIRUBIN,TOTAL 0.3 mg/dL (0.2-1.0); LIPASE 650 U/L (73-393); TOTAL PROTEIN, SERUM 7.1 g/dL (6.4-8.2)
[2018-09-08 10:37] LABS: BASOPHILS % (AUTO) 0.1 % (0.0-2.0); EOSINOPHILS % (AUTO) 0.7 % (0.0-6.0); HEMATOCRIT 36 % (39-51); HEMOGLOBIN 11.6 g/dL (13.5-17.5); LYMPHOCYTES # (AUTO) 2.9 /CMM (0.8-4.8); LYMPHOCYTES % (AUTO) 19.9 % (20.0-44.0); MEAN CORPUSCULAR HGB CONC 32 g/dl (31.0-36.0); MEAN CORPUSCULAR VOLUME 91 fL (80-96); MONOCYTES # (AUTO) 1.6 /CMM (0.1-1.30); MONOCYTES % (AUTO) 11.1 % (2.0-12.0); NEUTROPHILS % (AUTO) 68.2 % (43.0-81.0); PLATELET COUNT (AUTO) 262 /CMM (150-450); RED BLOOD CELL COUNT(AUTO) 3.99 MIL/uL (4.5-6.0); WHITE BLOOD COUNT (AUTO) 14.7 K/uL (4.3-11.0)
[2018-09-08] MEDS ORDERED: GABA100C PO (10:45)
[2018-09-08] MEDS ORDERED: ALLO100T PO (10:45)
[2018-09-08] MEDS ORDERED: ONDA4TAB5 PO (10:45)
[2018-09-08] MEDS ORDERED: INDO50CA14 PO (10:45)
[2018-09-08] MEDS ORDERED: PRED10TA PO (11:02)
--- NOTE | 2018-09-08 11:25 | NUR ---
THONY CALLED... ITS TALI
--- NOTE | 2018-09-08 11:40 | NUR ---
GOT BED 327-1
--- NOTE | 2018-09-08 12:20 | NUR ---
REPORT GIVEN TO MS FABRICIO ROBLERO
[2018-09-08 12:42] LABS: APPEARANCE,URINE Cloudy (CLEAR); BILIRUBIN,URINE Negative (NEGATIVE); BLOOD, URINE Large Ery/uL (NEGATIVE); KETONES,URINE Negative (NEGATIVE); LEUKOCYTE ESTERASE ,URINE Small (NEGATIVE); NITRITE, URINE Positive (NEGATIVE); PH,URINE 6.5 (5.0-8.0); PROTEIN,URINE 100 mg/dl (NEGATIVE); UGLUCOSE Negative (NEGATIVE); UROBILINOGEN,URINE 0.2 EU/dL (0.2)
[2018-09-08 12:43] LABS: COLOR,URINE Light Yellow (YELLOW)
[2018-09-08 12:55] LABS: BACTERIA,URINE Moderate /HPF (None Seen); SQUAMOUS EPITHELIAL CELL,UR Few /HPF (None Seen)
[2018-09-08 12:57] LABS: RBC,URINE TOO NUMEROUS TO COUN /HPF (0-2)
[2018-09-08] MEDS ORDERED: CEFTRIAXONE 1GM BAG (ER ONLY) 50 ML IV ONE (13:11)
[2018-09-08] MEDS ORDERED: CEFTRIAXONE 1 G in IV D5W 50 ML IV SCH (13:30)
--- NOTE | 2018-09-08 14:00 | NUR ---
M/S ADMISSION RN NOTES PATIENT ADMITTED ALERT AND ORIENTED X4, PATIENT IN NO RESPIRATORY DISTRESS, DENIES PAIN AT THIS TIME. SKIN WARM TO TOUCH. PHOTOS TAKEN OF WOUNDS AND PLACED IN CHART. PATIENT ON IV ATB OF ROCEPHIN STARTED IN ER. IV ON LAC #20G INTACT AND PATENT, NO REDNESS, NO INFILTRATION. PATIENT'S BELONGINGS SIGNED AND REFUSED TO BE IN SAFE. ADMISSION ORDERS CARRIED OUT. BED ON LOW AND LOCKED POSITION, CALL LIGHT WITHIN REACH.
[2018-09-08] MEDS ORDERED: ACETAMINOPHEN 325 MG TABLET PO PRN (14:30)
[2018-09-08] MEDS ORDERED: HYDROCODONE/APAP 5/325MG 1 EACH TABLET PO PRN (14:30)
[2018-09-08] MEDS ORDERED: MAGNESIUM HYDROXIDE 30 ML UDC PO PRN (14:30)
[2018-09-08] MEDS ORDERED: ZOLPIDEM TARTRATE 5 MG TABLET PO PRN (14:30)
[2018-09-08] MEDS ORDERED: ONDANSETRON HCL/PF 4 MG/2 ML VIAL IVP PRN (14:30)
[2018-09-08] MEDS ORDERED: MAG HYDROX/AL HYDROX/SIMETH 30 ML UDC PO PRN (14:30)
[2018-09-08] MEDS ORDERED: Z GUARD REMEDY 2 OZ OINT TP PRN (14:30)
[2018-09-08] MEDS: GABAPENTIN 100 MG CAPSULE PO SCH (17:43)
[2018-09-08] MEDS: INDOMETHACIN 25 MG CAPSULE PO SCH (17:43)
--- NOTE | 2018-09-08 18:15 | NUR ---
M/S ADMISSION RN NOTES PATIENT ADMITTED ALERT AND ORIENTED X4, PATIENT IN NO RESPIRATORY DISTRESS, DENIES PAIN AT THIS TIME. SKIN WARM TO TOUCH. BED ON LOW AND LOCKED POSITION, CALL LIGHT WITHIN REACH. WILL ENDORSE TO ONCOMING NURSE.
--- NOTE | 2018-09-08 19:10 | NUR ---
MS RN OPENING NOTES Received patient A/O x4, awake on bed, on RA, no SOB/respiratory distress noted. No discomfort or complaint made at this time. Kept patient clean, dry and comfortable on bed. Call light within easy reach. Will continue to monitor accordingly.
[2018-09-08 20:00] VITALS: BP 139/62
[2018-09-08] MEDS: LATANOPROST EYE DROP 0.005% 2.5 ML BOTTLE EACHEYE SCH (21:41)
[2018-09-08] MEDS: TIMOLOL 0.5% SOLN OPHTH 5 ML BOTTLE EACHEYE SCH (21:43)
--- NOTE | 2018-09-09 06:30 | NUR ---
MS RN CLOSING NOTES Patient was noted intermittently asleep well throughout the night, no new complaints made. All nursing needs attended. Due meds given as ordered, no ASE. On fall precautions. Call light within easy reach. Endorsed to the next shift.
[2018-09-09 07:34] LABS: BASOPHILS % (AUTO) 0.3 % (0.0-2.0); EOSINOPHILS % (AUTO) 5.5 % (0.0-6.0); HEMATOCRIT 32 % (39-51); HEMOGLOBIN 10.6 g/dL (13.5-17.5); LYMPHOCYTES # (AUTO) 2.5 /CMM (0.8-4.8); MEAN CORPUSCULAR HGB CONC 34 g/dl (31.0-36.0); MEAN CORPUSCULAR VOLUME 89 fL (80-96); MONOCYTES # (AUTO) 1.2 /CMM (0.1-1.30); MONOCYTES % (AUTO) 11.4 % (2.0-12.0); NEUTROPHILS # (AUTO) 5.9 /CMM (1.8-8.9); NEUTROPHILS % (AUTO) 57.8 % (43.0-81.0); PLATELET COUNT (AUTO) 215 /CMM (150-450); RED BLOOD CELL COUNT(AUTO) 3.55 MIL/uL (4.5-6.0); WHITE BLOOD COUNT (AUTO) 10.2 K/uL (4.3-11.0)
[2018-09-09] MEDS: LEVOTHYROXINE SODIUM 125 MCG TABLET PO SCH (07:36)
[2018-09-09] MEDS: PANTOPRAZOLE 40 MG TABLET.DR PO SCH (07:36)
[2018-09-09 07:42] LABS: CALCIUM, SERUM 8.4 mg/dL (8.5-10.1); CARBON DIOXIDE 20 mmol/L (21-32); CHLORIDE 111 mmol/L (98-107); CREATININE 1.1 mg/dL (0.6-1.3); GLUCOSE 83 mg/dL (74-106); MAGNESIUM 1.7 mg/dL (1.8-2.4); PHOSPHORUS 3.6 mg/dL (2.5-4.9); POTASSIUM 4.4 mmol/L (3.5-5.1); SODIUM SERUM 141 mmol/L (136-145); UREA NITROGEN, BLOOD 32 mg/dL (7-18)
[2018-09-09 08:00] VITALS: BP 133/68
--- NOTE | 2018-09-09 08:00 | NUR ---
m/s fractionation plant supervisor: initial assessment received pt in bed awake, a/ox3 with dx: failure to thrive. appetite is good. no c/o pain or any discomfort. instructed to call for assistance. will continue to monitor.
[2018-09-09 08:07] LABS: CHOLESTEROL 108 mg/dL (<200); FERRITIN 263 ng/mL (8-388); HDL CHOLESTEROL 21 mg/dL (40-60); LDL 77 mg/dL (0-99); TRIGLYCERIDES 119 mg/dL (30-150)
[2018-09-09 08:29] LABS: IRON, SERUM 22 ug/dl (50-175); TOTAL IRON BINDING CAPACITY 204 ug/dl (250-450)
[2018-09-09] MEDS: INDOMETHACIN 25 MG CAPSULE PO SCH ×3 (08:29→16:52)
[2018-09-09] MEDS: GABAPENTIN 100 MG CAPSULE PO SCH ×3 (08:29→16:52)
[2018-09-09] MEDS: ALLOPURINOL 100 MG TABLET PO SCH (08:29)
--- NOTE | 2018-09-09 10:00 | NUR ---
m/s ergonomics technician: md visit seen by dr. powell's manager inpatient student at this time.
[2018-09-09] MEDS: Magnesium 1GM/D5W 100ML PREMIX 100 ML IV SCH ×2 (10:37→11:40)
--- NOTE | 2018-09-09 12:00 | NUR ---
m/s trestleman: notes lunch served. hob elevated. call light within reach.
--- NOTE | 2018-09-09 14:00 | NUR ---
m/s automotive worker: notes resting quietly in bed watching tv. call light within reach. will continue to monitor.
--- NOTE | 2018-09-09 15:50 | NUR ---
m/s cold working inspector: notes noted pt with mrsa positive nares. pt made aware and educated pt on mrsa, pt verbalized understanding. cn made aware. isolation precaution to be followed. will continue to monitor.
[2018-09-09 16:00] VITALS: BP 115/74
--- NOTE | 2018-09-09 17:37 | NUR ---
m/s elementary special education teacher: notes maggie enriquez called to informed mrsa nares being positive at this time. will continue to monitor. pt having dinner at this time with hob elevated.
--- NOTE | 2018-09-09 19:00 | NUR ---
m/s analyst market intelligence: notes report given robin (rn) for continuity of care.
--- NOTE | 2018-09-09 19:10 | NUR ---
MS/RN NOTES RECEIVED PT. LYING IN BED. PT. IS AWAKE, ALERT AND ORIENTED X3. BREATHING EVEN AND UNLABORED ON ROOM AIR. NO SOB, RESPIRATORY DISTRESS OR COMPLAINTS OF PAIN NOTED AT THIS TIME. PT. WITH LEFT AC 20 GAUGE IV SALINE LOCK PRESENT, PATENT AND INTACT. BED LOCKED AND IN LOWEST POSITION, SIDE RAILS UP X3, BED ALARM ON, CALL LIGHT WITHIN REACH, WILL CONTINUE TO MONITOR.
--- NOTE | 2018-09-09 20:00 | NUR ---
MS/RN NOTES PT. IS POSITIVE FOR MRSA NARES, PT. TRANSFERRED TO ROOM 328-1. PT. TOLERATED TRANSFER WELL. WILL CONTINUE TO MONITOR.
[2018-09-09 20:23] VITALS: BP 117/58
[2018-09-09] MEDS: MUPIROCIN OINT 2% 22 GM TUBE SCH (21:40)
[2018-09-09] MEDS: TIMOLOL 0.5% SOLN OPHTH 5 ML BOTTLE EACHEYE SCH (21:40)
[2018-09-09] MEDS: LATANOPROST EYE DROP 0.005% 2.5 ML BOTTLE EACHEYE SCH (21:40)
--- NOTE | 2018-09-10 06:54 | NUR ---
MS/RN NOTES PT. IS LYING IN BED RESTING. BREATHING EVEN AND UNLABORED ON ROOM AIR. NO SOB, RESPIRATORY DISTRESS OR COMPLAINTS OF PAIN NOTED AT THIS TIME. PT. WITH LEFT AC 20 GAUGE IV SALINE LOCK PRESENT, PATENT AND INTACT. ALL PT. NEEDS MET. BED LOCKED AND IN LOWEST POSITION, SIDE RAILS UP X3, BED ALARM ON, CALL LIGHT WITHIN REACH, WILL ENDORSE TO DAYSHIFT NURSE FOR CONTINUITY OF CARE.
[2018-09-10 07:14] LABS: BASOPHILS % (AUTO) 0.4 % (0.0-2.0); EOSINOPHILS % (AUTO) 6.5 % (0.0-6.0); HEMATOCRIT 32 % (39-51); HEMOGLOBIN 10.7 g/dL (13.5-17.5); LYMPHOCYTES # (AUTO) 2.4 /CMM (0.8-4.8); LYMPHOCYTES % (AUTO) 23.2 % (20.0-44.0); MEAN CORPUSCULAR HGB CONC 33 g/dl (31.0-36.0); MEAN CORPUSCULAR VOLUME 89 fL (80-96); MONOCYTES # (AUTO) 1.3 /CMM (0.1-1.30); MONOCYTES % (AUTO) 12.3 % (2.0-12.0); NEUTROPHILS # (AUTO) 5.9 /CMM (1.8-8.9); NEUTROPHILS % (AUTO) 57.6 % (43.0-81.0); PLATELET COUNT (AUTO) 209 /CMM (150-450); WHITE BLOOD COUNT (AUTO) 10.2 K/uL (4.3-11.0)
[2018-09-10 07:32] LABS: CALCIUM, SERUM 8.4 mg/dL (8.5-10.1); CARBON DIOXIDE 20 mmol/L (21-32); CHLORIDE 110 mmol/L (98-107); CREATININE 1.2 mg/dL (0.6-1.3); GLUCOSE 81 mg/dL (74-106); MAGNESIUM 2.3 mg/dL (1.8-2.4); SODIUM SERUM 140 mmol/L (136-145); UREA NITROGEN, BLOOD 30 mg/dL (7-18)
[2018-09-10 07:46] LABS: LIPASE 558 U/L (73-393)
[2018-09-10 08:00] VITALS: BP 129/60
--- NOTE | 2018-09-10 08:00 | NUR ---
MS RN OPENING NOTES Received Patient comfortable and resting in bed. A/O x 3. VS stable with no acute distress. Breathing even and unlabored on room air with no respiratory distress. Patient stated tolerable pain of 4/10 on LEFT LOWER EXTREMITY. Will continue to monitor. 20g PIV on LAC clean, dry, intact and flushing well. Noted LEFT ARM abrasion and redness on BUTTOCKS/GROIN. Safety precautions in place. Bed locked and set to lowest position with side rails x [address] up[address]olation precautions in place. All needs rendered at this time. Will continue to monitor.
[2018-09-10] MEDS: ALLOPURINOL 100 MG TABLET PO SCH (08:57)
[2018-09-10] MEDS: LEVOTHYROXINE SODIUM 125 MCG TABLET PO SCH (08:58)
[2018-09-10] MEDS: PANTOPRAZOLE 40 MG TABLET.DR PO SCH (08:58)
[2018-09-10] MEDS: INDOMETHACIN 25 MG CAPSULE PO SCH ×3 (08:59→16:23)
[2018-09-10] MEDS: GABAPENTIN 100 MG CAPSULE PO SCH ×3 (08:59→16:24)
[2018-09-10] MEDS: MUPIROCIN OINT 2% 22 GM TUBE SCH ×2 (09:01→21:59)
[2018-09-10 10:00] VITALS: BP 126/60
[2018-09-10 16:00] VITALS: BP 102/44
[2018-09-10] MEDS: CEPHALEXIN MONOHYDRATE 250 MG CAPSULE PO SCH (18:06)
--- NOTE | 2018-09-10 19:20 | NUR ---
MS RN NOTES RECEIVED PT IN BED SLEEPING BUT EASILY AWOKEN VERBALLY OR BY TOUCH. PT A/O X3 AND ABLE TO MAKE NEEDS KNOWN. RESPIRATIONS EVEN AND UNLABORED WITH NO S/S OF ACUTE DISTRESS OR SOB NOTED. NO COMPLAINTS OF PAIN AT THIS TIME. PT WITH IV LAC #20 GAUGE PATENT AND INTACT AND SL. SAFETY MEASURES IN PLACE WITH BED IN LOWEST LOCKED POSITION AND SIDE RAILS UP X3. CALL LIGHT WITHIN REACH. WILL CONTINUE TO MONITOR.
--- NOTE | 2018-09-10 19:37 | NUR ---
MS RN CLOSING NOTES Patient comfortable and asleep in bed. A/O x 3. VS stable with no acute distress. Breathing even and unlabored on room air with no respiratory distress. No signs and symptoms of pain at this time. 20g PIV on LAC clean, dry, intact and flushing well. Safety precautions in place. Bed locked and set to lowest position with side rails x [address] up[address] Isolation precautions in place. All needs rendered at this time. Will endorse plan of care to oncoming shift.
[2018-09-10 20:00] VITALS: BP 117/47
[2018-09-10] MEDS: TIMOLOL 0.5% SOLN OPHTH 5 ML BOTTLE EACHEYE SCH (21:57)
[2018-09-10] MEDS: LATANOPROST EYE DROP 0.005% 2.5 ML BOTTLE EACHEYE SCH (21:58)
[2018-09-11] MEDS: CEPHALEXIN MONOHYDRATE 250 MG CAPSULE PO SCH ×2 (00:13→05:20)
--- NOTE | 2018-09-11 07:04 | NUR ---
MS RN NOTES PT IN BED AWAKE AND ABLE TO MAKE NEEDS KNOWN. PT A/O X3. RESPIRATIONS EVEN AND UNLABORED WITH NO S/S OF ACUTE DISTRESS OR SOB NOTED THROUGHOUT SHIFT. NO COMPLAINTS OF PAIN AT THIS TIME. PT WITH IV LAC #20 GAUGE PATENT AND INTACT AND SL. SAFETY MEASURES IN PLACE WITH BED IN LOWEST LOCKED POSITION AND SIDE RAILS UP X3. PT KEPT CLEAN, DRY, AND COMFORTABLE. CALL LIGHT WITHIN REACH. WILL ENDORSE TO ONCOMING NURSE FOR FORTUNATO.
[2018-09-11] MEDS: LEVOTHYROXINE SODIUM 125 MCG TABLET PO SCH (07:39)
[2018-09-11] MEDS: PANTOPRAZOLE 40 MG TABLET.DR PO SCH (07:39)
--- NOTE | 2018-09-11 07:50 | NUR ---
M/S RN NOTES PATIENT AWAKE IN BED, ALERT AND ORIENTED X4. NO RESPIRATORY DISTRESS NOTED. DENIES ANY PAIN AT THIS TIME. SKIN WARM TO TOUCH. IV SL ON LAC #20G, INTACT AND PATENT. PATIENT'S NEEDS ATTENDED. BED ON LOW AND LOCKED POSITION, CALL LIGHT WITHIN REACH. WILL CONTINUE TO MONITOR.
[2018-09-11 08:00] VITALS: BP 106/49
[2018-09-11] MEDS: GABAPENTIN 100 MG CAPSULE PO SCH ×3 (08:38→17:20)
[2018-09-11] MEDS: INDOMETHACIN 25 MG CAPSULE PO SCH ×3 (08:38→17:20)
[2018-09-11] MEDS: ALLOPURINOL 100 MG TABLET PO SCH (08:39)
[2018-09-11] MEDS: MUPIROCIN OINT 2% 22 GM TUBE SCH ×2 (08:39→21:08)
[2018-09-11] MEDS ORDERED: MEROPENEM 500 MG in IV NS 0.9% 50 ML IV SCH (13:00)
[2018-09-11] MEDS: MEROPENEM 1 G in IV NS 0.9% 100 ML IV SCH ×2 (13:21→21:08)
[2018-09-11 16:00] VITALS: BP 116/60
--- NOTE | 2018-09-11 18:25 | NUR ---
M/S RN NOTES PATIENT LYING IN BED,NO RESPIRATORY DISTRESS NOTED, DENIES ANY PAIN AT THIS TIME. SKIN WARM TO TOUCH. PATIENT'S NEEDS ATTENDED. BED ON LOW AND LOCKED POSITION, CALL LIGHT WITHIN REACH. WILL ENDORSE TO ONCOMING NURSE.
--- NOTE | 2018-09-11 19:15 | NUR ---
MS RN NOTES RECEIVED PT IN BED AWAKE AND ABLE TO MAKE NEEDS KNOWN. PT A/O X3. RESPIRATIONS EVEN AND UNLABORED WITH NO S/S OF ACUTE DISTRESS OR SOB NOTED. NO COMPLAINTS OF PAIN AT THIS TIME. PT WITH IV LAC #20 GAUGE PATENT AND INTACT AND SL. PT ISOLATION PRECAUTIONS FOR MRSA NARES. SAFETY MEASURES IN PLACE WITH BED IN LOWEST LOCKED POSITION AND SIDE RAILS UP X3. CALL LIGHT WITHIN REACH. WILL CONTINUE TO MONITOR.
[2018-09-11 20:28] VITALS: BP 113/55
[2018-09-11] MEDS: LATANOPROST EYE DROP 0.005% 2.5 ML BOTTLE EACHEYE SCH (21:09)
[2018-09-11] MEDS: TIMOLOL 0.5% SOLN OPHTH 5 ML BOTTLE EACHEYE SCH (21:09)
[2018-09-12] MEDS: MEROPENEM 1 G in IV NS 0.9% 100 ML IV SCH ×3 (04:21→21:12)
[2018-09-12 06:27] LABS: BASOPHILS # (AUTO) 0.1 /CMM (0.0-0.2); BASOPHILS % (AUTO) 0.7 % (0.0-2.0); EOSINOPHILS % (AUTO) 6.4 % (0.0-6.0); HEMATOCRIT 32 % (39-51); HEMOGLOBIN 10.7 g/dL (13.5-17.5); LYMPHOCYTES % (AUTO) 12.7 % (20.0-44.0); MEAN CORPUSCULAR HGB CONC 33 g/dl (31.0-36.0); MEAN CORPUSCULAR VOLUME 89 fL (80-96); NEUTROPHILS # (AUTO) 5.6 /CMM (1.8-8.9); NEUTROPHILS % (AUTO) 68.2 % (43.0-81.0); PLATELET COUNT (AUTO) 173 /CMM (150-450); RED BLOOD CELL COUNT(AUTO) 3.62 MIL/uL (4.5-6.0); WHITE BLOOD COUNT (AUTO) 8.2 K/uL (4.3-11.0)
[2018-09-12 06:31] LABS: CALCIUM, SERUM 8.5 mg/dL (8.5-10.1); CARBON DIOXIDE 21 mmol/L (21-32); CHLORIDE 114 mmol/L (98-107); CREATININE 1.6 mg/dL (0.6-1.3); GLUCOSE 101 mg/dL (74-106); POTASSIUM 4.8 mmol/L (3.5-5.1); SODIUM SERUM 145 mmol/L (136-145); UREA NITROGEN, BLOOD 32 mg/dL (7-18)
--- NOTE | 2018-09-12 06:50 | NUR ---
MS RN NOTES PATIENT ASLEEP IN BED WITH NO DISTRESS NOTED. CALL LIGHT WITHIN REACH. NO C/O PAIN OR DISCOMFORT. ALL DUE MEDS GIVEN ORDERED WITH NO NOTED. PERIPHERAL LINE REMAINS INTACT AND PATENT. CONTACT ISOLATION OBSERVED AND MAINTAINED AT ALL TIMES. ROOM FREE OF CLUTTER AND ALL BELONGINGS KEPT NEAR BEDSIDE. BED IN LOW LOCK SETTING. WILL ENDORSE TO ONCOMING SHIFT.
--- NOTE | 2018-09-12 07:17 | NUR ---
MS RN OPENING NOTES RECEIVED PATIENT AWAKE IN BED IN NO ACUTE SIGNS OF DISTRESS. A/O X4. ABLE TO MAKE NEEDS KNOWN, DENIES PAIN OR ANY DISCOMFORTS AT THIS TIME. ON ROOM AIR, BREATHING EVEN AND UNLABORED. PIV ON LAC G#20 INTACT AND PATENT. SAFETY MEASURES IN PLACE. BED IN LOW LOCKED POSITION WITH SR UP X2. CALL LIGHT IN REACH. WILL CONTINUE TO MONITOR.
[2018-09-12] MEDS: PANTOPRAZOLE 40 MG TABLET.DR PO SCH (07:24)
[2018-09-12] MEDS: LEVOTHYROXINE SODIUM 125 MCG TABLET PO SCH (07:24)
[2018-09-12 08:00] VITALS: BP 133/75
[2018-09-12] MEDS: GABAPENTIN 100 MG CAPSULE PO SCH ×3 (08:32→17:21)
[2018-09-12] MEDS: INDOMETHACIN 25 MG CAPSULE PO SCH ×3 (08:32→17:21)
[2018-09-12] MEDS: ALLOPURINOL 100 MG TABLET PO SCH (08:32)
[2018-09-12] MEDS: MUPIROCIN OINT 2% 22 GM TUBE SCH ×2 (08:33→21:11)
--- NOTE | 2018-09-12 11:42 | NUR ---
RN NOTES URINE SPECIMEN COLLECTED AND CALL FACE BURLER TO PICK-UP SPECIMEN FROM [facility].
--- NOTE | 2018-09-12 11:45 | NUR ---
RN NOTES PT HAD PHYSICAL THERAPY THIS MORNING. PT ABLE TO SIT AT SIDE OF BED WITH ASSISTANCE. REFUSED TO STAND-UP AND WALK DUE TO PAIN ON HIS LEFT FOOT. WILL CONTINUE TO MONITOR.
--- NOTE | 2018-09-12 11:57 | NUR ---
WOUND CARE CONSULT WOUND CARE RECEIVED CONSULT FOR MULTIPLE SKIN BREAKDOWNS. WOUND CARE WILL DEFER CONSULT AND TREATMENT PLANS TO PLASTIC SURGICAL TEAM WHO ARE CURRENTLY FOLLOWING THIS PATIENT. PATIENT WITH BRADLEY AT 11, ALL PRESSURE ULCER PREVENTION MEASURES ARE NOTED TO BE IN PLACE AT THIS TIME. WILL SEE PRN.
[2018-09-12 16:00] VITALS: BP 122/55
[2018-09-12 18:36] LABS: APPEARANCE,URINE CLEAR (CLEAR); BILIRUBIN,URINE NEGATIVE (NEGATIVE); BLOOD, URINE 3+ Ery/uL (NEGATIVE); COLOR,URINE YELLOW (YELLOW); KETONES,URINE NEGATIVE (NEGATIVE); LEUKOCYTE ESTERASE ,URINE 3+ (NEGATIVE); NITRITE, URINE NEGATIVE (NEGATIVE); PROTEIN,URINE 2+ mg/dl (NEGATIVE); UGLUCOSE NEGATIVE (NEGATIVE); UROBILINOGEN,URINE 0.2 EU/dL (0.2)
[2018-09-12 18:42] LABS: BACTERIA,URINE Rare /HPF (None Seen); RBC,URINE TOO NUMEROUS TO COUN /HPF (0-2); WBC,URINE TOO NUMEROUS TO COUN /HPF (0-3)
--- NOTE | 2018-09-12 18:42 | NUR ---
MS RN CLOSING NOTES PATIENT IN BED AWAKE AND WATCHING TV. A/O X4. ABLE TO MAKE NEEDS KNOWN. NO SIGNIFICANT EVENTS OR CHANGES NOTED THROUGHOUT THE DAY. PT ON ROOM AIR, TOLERATING WELL WITH NO SOB NOTED. IV ACCESS ON LAC G#20 INTACT AND PATENT. ALL NEEDS AND CARE ATTENDED WELL. ALL SAFETY MEASURES KEPT IN PLACE. HOB KEPT ELEVATED. BED IN LOW LOCKED POSITION WITH SR UP X2. CALL LIGHT IN REACH. WILL ENDORSE TO MAGNETIC HEALER NURSE FOR FORTUNATO.
[2018-09-12 18:46] LABS: CREATININE, URINE 78.8 MG/DL (30.0-125.0); URINE TOTAL PROTEIN 167.5 mg/dL (0-11.9)
--- NOTE | 2018-09-12 19:20 | NUR ---
MS RN NOTES RECEIVED PATIENT IN BED AWAKE AND WATCHING TV. ALERT ORIENTED X4. ABLE TO MAKE NEEDS KNOWN. PATIENT ON ROOM AIR, TOLERATING WELL WITH NO SOB NOTED. BREATHING EVEN AND UNLABORED, IV ACCESS ON LAC G#20 INTACT AND PATENT.ALL SAFETY MEASURES KEPT IN PLACE. HOB KEPT ELEVATED. ASPIRATION PRECAUTION EMPHASIZED, BED IN LOW LOCKED POSITION WITH SR UP X2. CALL LIGHT WITHIN EASY REACH. DENIES ANY PAIN AT THIS TIME, WILL CONTINUE TO MONITOR ACCORDINGLY.
[2018-09-12 19:28] LABS: EOSINOPHIL,URINE Few
[2018-09-12 20:00] VITALS: BP 108/45
[2018-09-12] MEDS ORDERED: MUPIROCIN OINT 2% 22 GM TUBE SCH (21:00)
[2018-09-12] MEDS: TIMOLOL 0.5% SOLN OPHTH 5 ML BOTTLE EACHEYE SCH (21:13)
[2018-09-12] MEDS: LATANOPROST EYE DROP 0.005% 2.5 ML BOTTLE EACHEYE SCH (21:13)
[2018-09-13] MEDS: MEROPENEM 1 G in IV NS 0.9% 100 ML IV SCH ×3 (04:58→23:45)
--- NOTE | 2018-09-13 07:00 | NUR ---
RN NOTES ALL NEEDS ATTENDED SAFETY MEASURES IN PLACED, ASPIRATION PRECAUTION EMPHASIZED, ENDORSED TO AM NURSE FOR CONTINUITY OF CARE.
--- NOTE | 2018-09-13 07:17 | NUR ---
RN OPENING NOTES PT WAS RECEIVED IN BED IN LOWEST AND LOCKED POSITION WITH SIDE RAILS UP X2 RESTING COMFORTABLY IN BED, A/OX 4 BREATHING EVEN AND UNLABORED ON RA, NO CURRENT S/S OF ANY DISTRESS OR PAIN AT THIS TIME, IV IS PATENT AND INTACT, D/C PENDING AWAITING PLACEMENT AND IV ABX, SAFETY PRECAUTIONS IN PLACE, CALL LIGHT WITHIN REACH, WILL MONITOR PT ACCORDINGLY.
[2018-09-13] MEDS: LEVOTHYROXINE SODIUM 125 MCG TABLET PO SCH (07:52)
[2018-09-13] MEDS: PANTOPRAZOLE 40 MG TABLET.DR PO SCH (07:53)
[2018-09-13 08:00] VITALS: BP 121/52
[2018-09-13] MEDS: INDOMETHACIN 25 MG CAPSULE PO SCH ×3 (08:44→16:13)
[2018-09-13] MEDS: ALLOPURINOL 100 MG TABLET PO SCH (08:44)
[2018-09-13] MEDS: GABAPENTIN 100 MG CAPSULE PO SCH ×3 (08:44→16:13)
[2018-09-13] MEDS: MUPIROCIN OINT 2% 22 GM TUBE SCH ×2 (08:50→21:33)
[2018-09-13 12:04] LABS: BASOPHILS # (AUTO) 0.1 /CMM (0.0-0.2); BASOPHILS % (AUTO) 0.6 % (0.0-2.0); EOSINOPHILS % (AUTO) 4.6 % (0.0-6.0); HEMATOCRIT 32 % (39-51); HEMOGLOBIN 10.8 g/dL (13.5-17.5); LYMPHOCYTES # (AUTO) 0.8 /CMM (0.8-4.8); LYMPHOCYTES % (AUTO) 7.1 % (20.0-44.0); MEAN CORPUSCULAR HGB CONC 34 g/dl (31.0-36.0); MEAN CORPUSCULAR VOLUME 89 fL (80-96); MONOCYTES # (AUTO) 1.4 /CMM (0.1-1.30); MONOCYTES % (AUTO) 12.5 % (2.0-12.0); NEUTROPHILS # (AUTO) 8.2 /CMM (1.8-8.9); NEUTROPHILS % (AUTO) 75.2 % (43.0-81.0); PLATELET COUNT (AUTO) 176 /CMM (150-450); RED BLOOD CELL COUNT(AUTO) 3.58 MIL/uL (4.5-6.0); WHITE BLOOD COUNT (AUTO) 10.8 K/uL (4.3-11.0)
[2018-09-13 12:26] LABS: ALANINE AMINOTRANSFERASE 20 U/L (12-78); ALBUMIN 2.2 g/dL (3.4-5.0); ALKALINE PHOSPHATASE 90 U/L (46-116); ASPARTATE AMINOTRANSFERASE 16 U/L (15-37); BILIRUBIN,TOTAL 0.3 mg/dL (0.2-1.0); CALCIUM, SERUM 8.7 mg/dL (8.5-10.1); CARBON DIOXIDE 18 mmol/L (21-32); CHLORIDE 111 mmol/L (98-107); CREATININE 1.8 mg/dL (0.6-1.3); GLUCOSE 123 mg/dL (74-106); MAGNESIUM 1.7 mg/dL (1.8-2.4); PHOSPHORUS 2.4 mg/dL (2.5-4.9); POTASSIUM 4.6 mmol/L (3.5-5.1); SODIUM SERUM 141 mmol/L (136-145); TOTAL PROTEIN, SERUM 6.3 g/dL (6.4-8.2); UREA NITROGEN, BLOOD 32 mg/dL (7-18)
[2018-09-13 16:00] VITALS: BP 120/48
--- NOTE | 2018-09-13 18:19 | NUR ---
RN CLOSING NOTES PT IN BED IN LOWEST AND LOCKED POSITION WITH SIDE RAILS UP X2 RESTING COMFORTABLY IN BED, A/OX 4 BREATHING EVEN AND UNLABORED ON RA, NO DISTRESS OR PAIN AT THIS TIME, IV IS PATENT AND INTACT, SAFETY PRECAUTIONS IN PLACE, CALL LIGHT WITHIN REACH, ALL NEEDS ATTENDED TO, WILL ENDORSE TO TRIM STENCIL MAKER RN FOR FORTUNATO.
--- NOTE | 2018-09-13 19:32 | NUR ---
RN OPENING NOTES RECEIVED PATIENT FROM OSBALDO GARCIA. PATIENT IS ASLEEP, RESTING IN BED COMFORTABLY. NO SIGNS OF RESPIRATORY DISTRESS. NO SIGNS OF SHORTNESS OF BREATH. NO SIGNS OF PAIN OR DISCOMFORT AT THIS TIME. IV SITE IS PATENT AND INTACT. SAFETY PRECAUTIONS IMPLEMENTED. CALL LIGHT WITHIN REACH. WILL CONTINUE TO MONITOR PATIENT THROUGHOUT THE SHIFT.
[2018-09-13 20:00] VITALS: BP 113/57
[2018-09-13 20:34] VITALS: BP 113/51
[2018-09-13] MEDS: TIMOLOL 0.5% SOLN OPHTH 5 ML BOTTLE EACHEYE SCH (21:18)
[2018-09-13] MEDS: LATANOPROST EYE DROP 0.005% 2.5 ML BOTTLE EACHEYE SCH (21:18)
--- NOTE | 2018-09-14 06:23 | NUR ---
RN CLOSING NOTES PATIENT IS RESTING COMFORTABLY IN BED. NO SIGNS OF RESPIRATORY DISTRESS. NO SIGNS OF SHORTNESS OF BREATH NOTED. NO SIGNS OF PAIN OR DISCOMFORT AT THIS TIME. IV SITE IS PATENT AND INTACT. SAFETY PRECAUTIONS IMPLEMENTED. PATIENT TURNED Q2HRS, OFFLOADED EXTREMITIES. ALL NEEDS WERE MET. ALL SCHEDULED MEDICATIONS WERE GIVEN. CALL LIGHT WITHIN REACH. WILL CONTINUE TO MONITOR AND ENDORSE TO AM RN.
[2018-09-14 07:00] LABS: BASOPHILS # (AUTO) 0.1 /CMM (0.0-0.2); BASOPHILS % (AUTO) 0.7 % (0.0-2.0); EOSINOPHILS % (AUTO) 5.5 % (0.0-6.0); HEMATOCRIT 33 % (39-51); HEMOGLOBIN 10.9 g/dL (13.5-17.5); LYMPHOCYTES # (AUTO) 0.8 /CMM (0.8-4.8); LYMPHOCYTES % (AUTO) 8.5 % (20.0-44.0); MEAN CORPUSCULAR HGB CONC 33 g/dl (31.0-36.0); MEAN CORPUSCULAR VOLUME 89 fL (80-96); MONOCYTES # (AUTO) 1.3 /CMM (0.1-1.30); MONOCYTES % (AUTO) 13.9 % (2.0-12.0); NEUTROPHILS # (AUTO) 6.8 /CMM (1.8-8.9); NEUTROPHILS % (AUTO) 71.4 % (43.0-81.0); PLATELET COUNT (AUTO) 166 /CMM (150-450); RED BLOOD CELL COUNT(AUTO) 3.69 MIL/uL (4.5-6.0); WHITE BLOOD COUNT (AUTO) 9.5 K/uL (4.3-11.0)
--- NOTE | 2018-09-14 07:30 | NUR ---
RN MS NOTES PT IN BED, AWAKE, ALERT AND ORIENTED, NO COMPLAINT OF PAIN, RESPIRATIONS NORMAL, ASSISTED WITH NEEDS, ISOLATION PRECAUTIONS OBSERVED, CALL LIGHT WITHIN REACH, KEPT COMFORTABLE AND TUTOR COORDINATOR BED.
--- NOTE | 2018-09-14 07:30 | NUR ---
RN MS NOTES PT IN BED
[2018-09-14 07:32] LABS: ALANINE AMINOTRANSFERASE 24 U/L (12-78); ALBUMIN 2.1 g/dL (3.4-5.0); ALKALINE PHOSPHATASE 91 U/L (46-116); ASPARTATE AMINOTRANSFERASE 21 U/L (15-37); BILIRUBIN,TOTAL 0.3 mg/dL (0.2-1.0); CARBON DIOXIDE 17 mmol/L (21-32); CHLORIDE 113 mmol/L (98-107); CREATININE 2.4 mg/dL (0.6-1.3); GLUCOSE 105 mg/dL (74-106); MAGNESIUM 1.8 mg/dL (1.8-2.4); PHOSPHORUS 3.7 mg/dL (2.5-4.9); SODIUM SERUM 143 mmol/L (136-145); TOTAL PROTEIN, SERUM 6.2 g/dL (6.4-8.2); UREA NITROGEN, BLOOD 42 mg/dL (7-18)
[2018-09-14] MEDS: LEVOTHYROXINE SODIUM 125 MCG TABLET PO SCH (07:43)
[2018-09-14] MEDS: PANTOPRAZOLE 40 MG TABLET.DR PO SCH (08:23)
[2018-09-14 08:39] VITALS: BP 111/46
[2018-09-14] MEDS: ALLOPURINOL 100 MG TABLET PO SCH (08:42)
[2018-09-14] MEDS: INDOMETHACIN 25 MG CAPSULE PO SCH (08:42)
[2018-09-14] MEDS: MUPIROCIN OINT 2% 22 GM TUBE SCH ×2 (08:42→21:02)
[2018-09-14] MEDS: GABAPENTIN 100 MG CAPSULE PO SCH ×3 (08:42→17:32)
[2018-09-14] MEDS: MEROPENEM 1 G in IV NS 0.9% 100 ML IV SCH ×2 (11:51→23:02)
--- NOTE | 2018-09-14 12:39 | NUR ---
RN MS NOTES PT IN BED, AWAKE, ALERT AND ORIENTED, DENIES PAIN, NOT IN DISTRESS, WITH GOOD PO INTAKE, SEEN BY DR. ROWE, INFORMED OF ABNORMAL LABS, ALSO SEEN BY PHYSICAL THERAPIST, PT ABLE TO SIT AT THE EDGE OF BED WITH GOOD BALANCE, CALL LIGHT WITHIN REACH, NEEDS ATTENDED.
[2018-09-14 16:00] VITALS: BP 116/51
--- NOTE | 2018-09-14 18:37 | NUR ---
RN MS NOTES PT IN BED, AWAKE, ALERT AND ORIENTED, WATCHING TV, NO COMPLAINT OF PAIN, BREATHING PATTERN NORMAL, TOLERATING CURRENT DIET WELL, WITH GOOD PO INTAKE, PM MEDS GIVEN ORDERED, CONTACT ISOLATION MAINTAINED, CALL LIGHT WITHIN REACH, ALL NEEDS ATTENDED.
--- NOTE | 2018-09-14 19:30 | NUR ---
RN medsurg opening notes Received Pt from morning nurse. PT is alert and oriented X3. PT is laying in bed watching TV. No sign of distress or any discomfort at this time. No nausea or vomiting. No SOB. IV is on Left hand, saline lock, patent, intact and flush without resistance. Contact precautions is maintained. Bed at low position and call light is within reach. Will continue to monitor and assist needs.
[2018-09-14 20:00] VITALS: BP 107/52
[2018-09-14] MEDS: LATANOPROST EYE DROP 0.005% 2.5 ML BOTTLE EACHEYE SCH (21:04)
[2018-09-14] MEDS: TIMOLOL 0.5% SOLN OPHTH 5 ML BOTTLE EACHEYE SCH ×2 (21:04→21:14)
--- NOTE | 2018-09-14 21:14 | NUR ---
RN sara notes PT refused timolol eye drop medication. PT states "I don't need it." PT education about medication has been given and PT still refused.
--- NOTE | 2018-09-15 06:21 | NUR ---
RN medsurg notes PT is resting in bed comfortably. No signs of distress or any discomfort at this time. Respiration is equal and unlabored. NO SOB. IV site is intact, patent and flush without resistance. PT turned Q 2 Hr. Offloaded extremities. Wound care treatment provided and dressing changed. All schedule meds have been given and assist all needs. Contact precautions is maintained. Bed at low position and call light is within reach. Will endorse to AM nurse.
[2018-09-15 07:00] VITALS: BP 111/46
--- NOTE | 2018-09-15 07:40 | NUR ---
MS RN OPENING NOTES RECEIVED PT IN BED. AWAKE. TOLERATING RA, WITH NO ACUTE RESPIRATORY DISTRESS NOTED. PT DENIES PAIN. PT DENIES CONCERNS OR ANY QUESTIONS AT THIS MOMENT. PIV TO LEFT HAND G22 SL, INTACT AND OPERATIONAL. PT KEPT COMFORTABLE. PT'S BED IN LOWEST, LOCKED POSITION WITH SR X2. CALL LIGHT AND FLUID WITHIN REACH. WILL CONTINUE PLAN OF CARE.
[2018-09-15] MEDS: PANTOPRAZOLE 40 MG TABLET.DR PO SCH (09:15)
[2018-09-15] MEDS: LEVOTHYROXINE SODIUM 125 MCG TABLET PO SCH (09:15)
[2018-09-15] MEDS: ALLOPURINOL 100 MG TABLET PO SCH (09:15)
[2018-09-15] MEDS: GABAPENTIN 100 MG CAPSULE PO SCH ×3 (09:16→16:09)
[2018-09-15] MEDS: MUPIROCIN OINT 2% 22 GM TUBE SCH ×2 (09:19→21:26)
[2018-09-15] MEDS: MEROPENEM 1 G in IV NS 0.9% 100 ML IV SCH ×2 (11:59→23:11)
[2018-09-15 12:03] LABS: BASOPHILS # (AUTO) 0.1 /CMM (0.0-0.2); BASOPHILS % (AUTO) 0.6 % (0.0-2.0); HEMATOCRIT 30 % (39-51); HEMOGLOBIN 10.1 g/dL (13.5-17.5); LYMPHOCYTES # (AUTO) 1.1 /CMM (0.8-4.8); LYMPHOCYTES % (AUTO) 11.2 % (20.0-44.0); MEAN CORPUSCULAR HGB CONC 34 g/dl (31.0-36.0); MEAN CORPUSCULAR VOLUME 88 fL (80-96); MONOCYTES # (AUTO) 1.3 /CMM (0.1-1.30); NEUTROPHILS # (AUTO) 6.4 /CMM (1.8-8.9); NEUTROPHILS % (AUTO) 67.2 % (43.0-81.0); PLATELET COUNT (AUTO) 190 /CMM (150-450); RED BLOOD CELL COUNT(AUTO) 3.41 MIL/uL (4.5-6.0); WHITE BLOOD COUNT (AUTO) 9.5 K/uL (4.3-11.0)
[2018-09-15 12:24] LABS: ALANINE AMINOTRANSFERASE 29 U/L (12-78); ALKALINE PHOSPHATASE 106 U/L (46-116); ASPARTATE AMINOTRANSFERASE 24 U/L (15-37); BILIRUBIN,TOTAL 0.3 mg/dL (0.2-1.0); CALCIUM, SERUM 9.1 mg/dL (8.5-10.1); CARBON DIOXIDE 17 mmol/L (21-32); CHLORIDE 112 mmol/L (98-107); CREATININE 2.6 mg/dL (0.6-1.3); GLUCOSE 110 mg/dL (74-106); MAGNESIUM 1.7 mg/dL (1.8-2.4); PHOSPHORUS 2.5 mg/dL (2.5-4.9); POTASSIUM 5.1 mmol/L (3.5-5.1); SODIUM SERUM 141 mmol/L (136-145); TOTAL PROTEIN, SERUM 6.2 g/dL (6.4-8.2); UREA NITROGEN, BLOOD 44 mg/dL (7-18)
[2018-09-15 16:00] VITALS: BP 102/57
[2018-09-15] MEDS ORDERED: GUAIFENESIN 300 MG/15 ML UDC PO PRN (16:30)
--- NOTE | 2018-09-15 16:50 | NUR ---
MS RN NOTES URINE COLLECTED THROUGH I&O CATH, PER PT'S PREFERENCE. WILL CONTINUE TO MONITOR.
[2018-09-15 17:57] LABS: APPEARANCE,URINE TURBID (CLEAR); BILIRUBIN,URINE NEGATIVE (NEGATIVE); BLOOD, URINE 3+ Ery/uL (NEGATIVE); COLOR,URINE AMBER (YELLOW); KETONES,URINE NEGATIVE (NEGATIVE); LEUKOCYTE ESTERASE ,URINE 2+ (NEGATIVE); NITRITE, URINE NEGATIVE (NEGATIVE); PH,URINE 6.5 (5.0-8.0); PROTEIN,URINE 2+ mg/dl (NEGATIVE); UGLUCOSE NEGATIVE (NEGATIVE); UROBILINOGEN,URINE 0.2 EU/dL (0.2)
[2018-09-15 17:59] LABS: CREATININE, URINE 46.6 MG/DL (30.0-125.0); URINE TOTAL PROTEIN 121.5 mg/dL (0-11.9)
[2018-09-15 18:08] LABS: RBC,URINE TOO NUMEROUS TO COUN /HPF (0-2)
[2018-09-15 18:09] LABS: BACTERIA,URINE Many /HPF (None Seen); SQUAMOUS EPITHELIAL CELL,UR Few /HPF (None Seen); WBC,URINE 21-50 /HPF (0-3)
[2018-09-15 18:28] LABS: EOSINOPHIL,URINE None Seen
--- NOTE | 2018-09-15 19:07 | NUR ---
MS RN CLOSING NOTES PT REMAINS IN BED. AWAKE. TOLERATING RA, WITH NO ACUTE RESPIRATORY DISTRESS NOTED. PT DENIES PAIN. PT DENIES PAIN OR ANY DISCOMFORT. PIV TO LEFT HAND G22 SL, INTACT AND OPERATIONAL. PT KEPT COMFORTABLE. ALL NEEDS AND CARE PROVIDED. PT'S BED IN LOWEST, LOCKED POSITION WITH SR X2. HOB KEPT ELEVATED. CALL LIGHT AND FLUID WITHIN REACH. WILL ENDORSE TO INCOMING NIGHT NURSE FOR FORTUNATO.
--- NOTE | 2018-09-15 19:50 | NUR ---
MS RN NOTE: PATIENT RESTING IN BED, NO ACUTE DISTRESS NOTED. BREATHING EVEN AND LABORED, NO SOB NOTED. IV TO LEFT HAND IN PLACE. ISOLATION PRECAUTION OBSERVED. BED LOCKED AND IN LOWEST POSITION, CALL LIGHT IN REACH. WILL CONTINUE TO MONITOR.
[2018-09-15 20:00] VITALS: BP 108/68
[2018-09-15] MEDS: TIMOLOL 0.5% SOLN OPHTH 5 ML BOTTLE EACHEYE SCH ×2 (21:25→22:00)
[2018-09-15] MEDS: LATANOPROST EYE DROP 0.005% 2.5 ML BOTTLE EACHEYE SCH (21:25)
--- NOTE | 2018-09-15 22:00 | NUR ---
MS RN NOTE: PATIENT REFUSED EYE DROP TIMOPTIC, EXPLAINED RISK AND BENEFITS, BUT PATIENT CONTINUES TO REFUSE EYE DROPS. WILL CONTINUE TO MONITOR.
--- NOTE | 2018-09-16 06:12 | NUR ---
MS RN NOTE: PATIENT RESTING IN BED, NO ACUTE DISTRESS NOTED. BREATHING EVEN AND LABORED, NO SOB NOTED. IV TO LEFT HAND IN PLACE. ISOLATION PRECAUTION OBSERVED. BED LOCKED AND IN LOWEST POSITION, CALL LIGHT IN REACH. WILL ENDORSE TO DAY NURSE TO CONTINUE WITH PLAN OF CARE.
[2018-09-16 06:29] LABS: BASOPHILS # (AUTO) 0.1 /CMM (0.0-0.2); BASOPHILS % (AUTO) 0.6 % (0.0-2.0); EOSINOPHILS % (AUTO) 6.2 % (0.0-6.0); HEMATOCRIT 30 % (39-51); HEMOGLOBIN 10.3 g/dL (13.5-17.5); LYMPHOCYTES # (AUTO) 1.1 /CMM (0.8-4.8); LYMPHOCYTES % (AUTO) 11.6 % (20.0-44.0); MEAN CORPUSCULAR HGB CONC 34 g/dl (31.0-36.0); MEAN CORPUSCULAR VOLUME 88 fL (80-96); MONOCYTES # (AUTO) 1.2 /CMM (0.1-1.30); MONOCYTES % (AUTO) 12.3 % (2.0-12.0); NEUTROPHILS # (AUTO) 6.5 /CMM (1.8-8.9); NEUTROPHILS % (AUTO) 69.3 % (43.0-81.0); PLATELET COUNT (AUTO) 193 /CMM (150-450); RED BLOOD CELL COUNT(AUTO) 3.45 MIL/uL (4.5-6.0); WHITE BLOOD COUNT (AUTO) 9.3 K/uL (4.3-11.0)
[2018-09-16 06:53] LABS: ALANINE AMINOTRANSFERASE 37 U/L (12-78); ALBUMIN 2.1 g/dL (3.4-5.0); ALKALINE PHOSPHATASE 99 U/L (46-116); ASPARTATE AMINOTRANSFERASE 30 U/L (15-37); BILIRUBIN,TOTAL 0.3 mg/dL (0.2-1.0); CALCIUM, SERUM 9.3 mg/dL (8.5-10.1); CARBON DIOXIDE 18 mmol/L (21-32); CHLORIDE 112 mmol/L (98-107); CREATININE 2.4 mg/dL (0.6-1.3); GLUCOSE 96 mg/dL (74-106); MAGNESIUM 1.6 mg/dL (1.8-2.4); PHOSPHORUS 3.5 mg/dL (2.5-4.9); POTASSIUM 5.2 mmol/L (3.5-5.1); SODIUM SERUM 142 mmol/L (136-145); TOTAL PROTEIN, SERUM 6.5 g/dL (6.4-8.2); UREA NITROGEN, BLOOD 41 mg/dL (7-18)
[2018-09-16] MEDS: LEVOTHYROXINE SODIUM 125 MCG TABLET PO SCH (07:44)
[2018-09-16] MEDS: PANTOPRAZOLE 40 MG TABLET.DR PO SCH (07:44)
[2018-09-16 08:00] VITALS: BP 110/52
--- NOTE | 2018-09-16 08:12 | NUR ---
M/S RN NOTES PATIENT AWAKE IN BED, ABLE TO MAKE NEEDS KNOWN. ALERT AND ORIENTED X 4. PATIENT DENIES ANY PAIN AT THIS TIME. IV SL ON THE LT HAND #22G PATENT AND INTACT, NO REDNESS, NO INFILTRATION. BED ON LOW AND LOCKED POSITION, CALL LIGHT WITHIN REACH. WILL CONTINUE TO MONITOR.
[2018-09-16] MEDS: GABAPENTIN 100 MG CAPSULE PO SCH ×3 (09:18→17:18)
[2018-09-16] MEDS: ALLOPURINOL 100 MG TABLET PO SCH (09:18)
[2018-09-16] MEDS: MUPIROCIN OINT 2% 22 GM TUBE SCH (09:22)
[2018-09-16] MEDS ORDERED: Magnesium 1GM/D5W 100ML PREMIX 100 ML IV SCH (10:30)
[2018-09-16] MEDS: MEROPENEM 1 G in IV NS 0.9% 100 ML IV SCH (12:36)
[2018-09-16] MEDS ORDERED: GABA100C PO (13:09)
[2018-09-16 16:00] VITALS: BP 130/55
[2018-09-16] MEDS ORDERED: methylPREDNISolone SOD SUCC 1,000 MG in IV NS 0.9% 250 ML IV ONE (18:00)
--- NOTE | 2018-09-16 19:34 | NUR ---
M/S RN NOTES PATIENT ALERT AND ORIENTED X 4. NO RESPIRATORY DISTRESS NOTED, DENIES ANY PAIN. PATIENT BEING DISCHARGED TODAY, GIVEN DISCHARGED INSTRUCTIONS, VERBALIZED UNDERSTANDING. SKIN ASSESSED AND PHOTOS TAKEN AND PUT IN THE CHART. BELONGINGS ACCOUNTED FOR AND SIGNED. WILL ENDORSE TO ONCOMING NURSE FOR DISCHARGE.
--- NOTE | 2018-09-16 19:35 | NUR ---
RN NOTES RECEIVED PATIENT AWAKE, CALM RESTING COMFORTABLY, NO APPARENT DISTRESS NOTED, ALL NEEDS ATTENDED AND MET, AWAITING DIAL BRUSHER FOR DISCHARGE. WILL MONITOR.
--- NOTE | 2018-09-16 19:55 | NUR ---
RN NOTES PICKED UP AND DISCHARGED, LEFT IN THE UNIT AT 1950 TO BOARD AND CARE, BELONGINGS GIVEN, DISCHARGE INSTRUCTION GIVEN.
[2018-09-17] MEDS ORDERED: methylPREDNISolone SOD SUCC 1,000 MG in IV NS 0.9% 250 ML IV SCH (20:00)
[2018-09-21 12:13] LABS: *SPE A/G RATIO 0.8 (0.7-1.7); *SPE ALBUMIN 2.6 g/dL (2.9-4.4); *SPE ALPHA-1-GLOBULIN 0.4 g/dL (0.0-0.4); *SPE GLOBULIN, TOTAL 3.3 g/dL (2.2-3.9); *SPE M-SPIKE Not Observed g/dL (Not Observed); *SPEGAMMA GLOBULIN 0.9 g/dL (0.4-1.8)
== END 2018-09-16 19:58 | disposition home or self-care (01) | DRG 689 ==
LOC: ER 09:33 → MED 13:13
PROVIDERS: ADMIT Nurse Practitioner Acute Care; ATTEND Nurse Practitioner Acute Care
DX: N39.0 Urinary tract infection, site not specified (principal); N17.0 Acute kidney failure with tubular necrosis; E44.0 Moderate protein-calorie malnutrition; K86.1 Other chronic pancreatitis; I12.9 Hypertensive chronic kidney disease with stage 1 through stage 4 chronic kidney disease, or unspecified chronic kidney disease; N18.9 Chronic kidney disease, unspecified; D50.9 Iron deficiency anemia, unspecified; E83.42 Hypomagnesemia; E87.5 Hyperkalemia; Z59.0 Homelessness; M10.9 Gout, unspecified; G62.9 Polyneuropathy, unspecified; E03.9 Hypothyroidism, unspecified; D63.8 Anemia in other chronic diseases classified elsewhere; Z85.51 Personal history of malignant neoplasm of bladder; Z87.442 Personal history of urinary calculi; R53.1 Weakness; E88.09 Other disorders of plasma-protein metabolism, not elsewhere classified; E87.8 Other disorders of electrolyte and fluid balance, not elsewhere classified; Z68.25 Body mass index [BMI] 25.0-25.9, adult; B96.89 Other specified bacterial agents as the cause of diseases classified elsewhere; Z16.12 Extended spectrum beta lactamase (ESBL) resistance; D72.829 Elevated white blood cell count, unspecified; L98.8 Other specified disorders of the skin and subcutaneous tissue; L30.4 Erythema intertrigo; S40.022A Contusion of left upper arm, initial encounter; X58.XXXA Exposure to other specified factors, initial encounter; Y93.9 Activity, unspecified; Y92.009 Unspecified place in unspecified non-institutional (private) residence as the place of occurrence of the external cause; Z22.322 Carrier or suspected carrier of Methicillin resistant Staphylococcus aureus; E66.9 Obesity, unspecified; N50.89 Other specified disorders of the male genital organs
CPT/HCPCS: 36415; 71045-TC; 76770-TC; 80048-TC; 80053-TC; 80061-TC; 80076-TC; 81000-TC; 82570-TC; 82728-TC; 83540-TC; 83690-TC; 83735-TC; 84100-TC; 84155; 84155-TC; 84165; 84300-TC; 84484-TC; 85025-TC; 85652-TC; 85730-TC; 86140-TC; 87081-TC; 87086-TC; 87186-TC; 97110-TC; 97530-TC; A4216; A4349; A6402; G0378; J0696; J2185; J2930; J3475; J7030; J7050; J7060